=== PATIENT | male | born 1950 | race Caucasian/White ===

== ENCOUNTER 2019-04-28 10:32 | Outpatient (CLI) | payer MEDICARE, SELFPAY ==
--- NOTE | 2019-04-28 10:34 | ECG_ITS ---
Measurements Intervals Kinder Rate: 62 P: 34 VT: 207 QRS: -17 QRSD: 101 T: 8 QT: 401 QTc: 408 Interpretive Statements SINUS RHYTHM WITH FIRST DEGREE AV BLOCK POSSIBLE LEFT VENTRICULAR HYPERTROPHY EARLY PRECORDIAL R/S TRANSITION BORDERLINE T WAVE ABNORMALITY- INFERIOR LEADS BASELINE ARTIFACT- I, II, III, AVR, AVL, AVF, V5 ABNORMAL ECG Electronically Signed On 04-28-2019 11:26:34 METAL [employer] by Estuardo Valles D.O.
[2019-04-28 11:24] LABS: Hematocrit 45.2 % (42.0-52.0); Hemoglobin 14.8 g/dL (14.0-18.0); Mean Corpuscular HGB Conc 32.7 g/dl (32-36); Mean Corpuscular Hemoglobin 30.6 pg (26-34); Mean Corpuscular Volume 93.4 fl (80-100); Mean Platelet Volume 9.7 fl (7.4-10.4); Platelet Count Result 227 k/mm3 (150-375); Red Blood Count 4.84 M/mm3 (4.6-6.20); Red Cell Distribution Width 14.5 % (11.5-14.5); White Blood Count 6.8 K/mm3 (4.5-10.0)
[2019-04-28 11:35] LABS: Alanine Aminotransferase 38 U/L (4-50); Albumin Level 4.3 g/dL (3.5-5.1); Alkaline Phosphatase 64 U/L (38-126); Aspartate Amino Transferase 34 U/L (17-59); Bilirubin,Total 0.3 mg/dL (0.2-1.3); Blood Urea Nitrogen 17 mg/dL (9-20); Calcium 9.4 mg/dL (8.4-10.2); Carbon Dioxide 30 mmol/L (22-30); Chloride 102 mmol/L (98-107); Estimated Glomerular Filt Rate > 60; Glucose 98 mg/dL (75-110); Potassium 4.1 mmol/L (3.4-5.0); Sodium 141 mmol/L (137-145)
== END 2019-04-28 10:33 | disposition home or self-care (01) ==
PROVIDERS: PCP Internal Medicine; Visit Provider Surgery
DX: K40.90 Unilateral inguinal hernia, without obstruction or gangrene, not specified as recurrent (principal)
CPT/HCPCS: 36415; 80053; 85027; 86850; 86900; 86901; 93005

== ENCOUNTER 2019-05-10 01:37 | Day surgery (SDC) | payer MEDICARE, SELFPAY ==
[2019-04-21 13:00] VITALS: BMI 25.2
[2019-05-10] VITALS (8 sets, daily range): BP systolic 104–135; BP diastolic 64–83; PULSE 52–67; RESP 12–20; TEMP 36.2–36.7; O2SAT 94–98
[2019-05-10] MEDS: LACTATED RINGERS 1,000 ML 30 ML IV CONT ×2 (11:00→13:54)
--- NOTE | 2019-05-10 11:35 | WPDANESEPPF ---
Anes - Initial Pre Proc Eval Procedure: Operation Date: 05/10/19 12:00 Proposed Procedures p Total Extraperitoneal Laparoscopic Left Inguinal Hernia Repair With Mesh, Possible Open - Juan Rutledge MD Date/Time: 05/10/19 11:35 Surgeon: Juan Rutledge MD Pre Op Diagnosis: Left Inguinal Hernia Patient Data Age: 68 Gender: M Height: 5 ft 10 in Weight: 82.5 kg Last Vital Signs Temp 36.7 C 05/10/19 11:17 Pulse 58 L 05/10/19 11:17 Resp 20 05/10/19 11:17 BP 107/64 05/10/19 11:17 Pulse Ox 97 05/10/19 11:17 Allergies Allergy/AdvReac Type Severity Reaction Status Date / Time Sulfa (Sulfonamide Allergy Mild red and Verified 04/21/19 13:02 Antibiotics) flushed Home Medications Medication Instructions Recorded Confirmed Type mesalamine 800 mg tablet,delayed 1,600 mg PO DAILY 04/11/19 05/10/19 History release latanoprost 0.005 % eye drops 1 drop EACH EYE DAILY 04/12/19 05/10/19 History pantoprazole 40 mg tablet,delayed 40 mg PO HS 04/12/19 05/10/19 History release aspirin [Aspir-81] 81 mg PO DAILY 04/21/19 05/10/19 History brimonidine-timolol [Combigan] 1 drp OPHTHALMIC (EYE) BID 04/21/19 05/10/19 History multivitamin 1 tablet PO DAILY 04/21/19 05/10/19 History vit B1 [id number]-C-FA 1 tablet PO DAILY 04/21/19 05/10/19 History rosuvastatin [Crestor] 20 mg PO DAILY 05/10/19 05/10/19 History Patient hx anesthesia problems: post op nausea/vomiting Family hx anesthesia problems: none PMFSH Past Medical History Medical History BPH associated with nocturia (~03/2016) Diverticulosis large intestine w/o perforation or abscess w/o bleeding (~03/2013) GERD (gastroesophageal reflux disease) High cholesterol Surgical History Surgical History Hx of tonsillectomy Family History Family History Father Malignant neoplasm of prostate Mother Cerebrovascular accident Unknown Diabetes mellitus Other Family history of malignant neoplasm Social History Social History Smoking status: Never smoker Alcohol intake: current Substance use: never Gender identity (if verbalized by the patient): Male Anes - Eval Final PreProcedure Day of Procedure 05/10/19 11:35 Patient weight: overweight Heart: regular rate and rhythm Lungs: clear to auscultation Airway: Mallampati scale class II Neurological: alert and oriented Last oral intake: >/= 8 hours ASA classification: III Emergent: no Anesthetic plan: proceed Anesthesia type and monitoring: general ETT and standard monitoring Informed Consent: The patient's anesthetic plan and its attendant risks and benefits were discussed with the patient/family/POA. Questions were solicited and answers provided to the satisfaction of the patient/family/POA.
--- NOTE | 2019-05-10 11:55 | WPDHPUPDATE1 ---
History and Physical Update Update Date/Time: 05/10/19 11:55 History and Physical has been reviewed, including an updated exam of the patient. There are NO changes in the patient's condition. Risks, benefits, and alternatives have been discussed and questions answered. Patient agrees to proceed with procedure.
[2019-05-10] MEDS: ceFAZolin 2 GM/D5W 50 ML 2 GM/50 ML BAG IVPB (12:22)
[2019-05-10] MEDS: BUPIVACAINE/EPINEPHRINE 0.5% 30 ML VIAL INFILTRATE (12:38)
--- NOTE | 2019-05-10 13:59 | PM.PROC ---
Procedure Note - Detailed Date of procedure: 05/10/19 Pre-op diagnosis: Left Inguinal Hernia Post-op diagnosis: other ( indirect left inguinal hernia) Procedure performed: Totally extraperitoneal laparoscopic left inguinal hernia repair with mesh Description of procedure: After appropriate marking of the operative site prior to surgery, the patient was taken to the operating room. After induction of adequate general endotracheal anesthesia by [facility] staff, the patient was carefully prepped and draped in a sterile fashion. A timeout was performed confirming the procedure and site of surgery on the LEFT. Following this, local anesthetic was infiltrated into the umbilical area and a vertical incision was made just below the umbilicus. I carefully dissected down to the the anterior rectus sheath on the left and then made a 1 cm vertical slit in the fascia just off the midline. The rectus muscle was retracted to left and then just in front of the posterior rectus sheath, a circular dissecting balloon was passed onto the pubic bone. After placing slight pressure on the right groin area, this was insufflated with 20 pumps, while watching with the 0 degree laparoscope. It appeared that I was in the proper plane. Following this, the dissecting balloon was removed and replaced by an O-shaped conforming balloon. Following this, the 0 degree laparoscope was used to carefully place two 5mm short trocars, just to the right of midline. One suprapubic and other one jail between the umbilicus and the pubic bone. Tedious dissection then occurred in the preperitoneal space exposing the Cleveland's ligament, the cord structures, the muscular tissue anteriorly, and the retroperitoneum. This was then able to be dissected back and we could visualize the posterior peritoneum. This patient had a fairly good-sized indirect inguinal hernia densely adhered to the cord structures. This was thoroughly dissected off of it with blunt and sharp dissection. I was able to bring the hernia sac up and see the posterior peritoneum such that the will posterior part of our mesh would come against the peritoneum and allow the hernia sac to fall onto the mesh. I then dissected up to the level of the umbilicus and it was ready for mesh placement. After carefully confirming all sites and that the mesh would cover the direct space, I carefully rolled the left large 3D max polypropylene mesh and slid this through the 12 mm trocar at the umbilical level down into the preperitoneal space. This unfurled nicely and sat nicely against the left groin structures. It nicely covered all spaces and it went back nicely into the preperitoneal space along the anterior-superior iliac spine. I took a picture of it carefully, which showed that the mesh will cover the preperitoneal groin well, and had come down to the posterior border of the peritoneum. Once this was accomplished, I took the patient out of Trendelenburg position, rotated the patient back even, and then observed using a dissector through the higher 5 mm trocar to keep the mesh pushed down against the anterior and posterior abdominal wall retroperitoneally. The peritoneum was then allowed to fall on to the mesh and it held the mesh nicely in place. I carefully removed each of the 5 mm trocars under direct vision and compressed the CO2 gas out of the preperitoneal space, deflating the conforming balloon and removing it. I was happy with the way the peritoneum laid back on the mesh. I felt this will give the patient a good preperitoneal repair. Following this, I carefully removed the conforming balloon. An O Vicryl figure of eight suture was used to close the anterior rectus sheath on the left side of the umbilical incision and then local anesthetic was infiltrated into each of the incisions. Each site was closed with 4-0 undyed Monocryl and a running subcuticular closure of 4-0 undyed Monocryl was used on the skin of umbilicus. Surgical glue was used for dressi
[2019-05-10] MEDS: SCOPOLAMINE 1.5 MG PATCH TRANSDERM (14:27)
[2019-05-10] MEDS: ONDANSETRON INJ 4 MG/2 ML VIAL IV PUSH (15:11)
== END 2019-05-10 15:54 | disposition home or self-care (01) ==
PROVIDERS: PCP Internal Medicine; Visit Provider Surgery
PROC: (CPT 49650; principal; 2019-05-10 12:00)
DX: K40.90 Unilateral inguinal hernia, without obstruction or gangrene, not specified as recurrent (principal); E78.00 Pure hypercholesterolemia, unspecified; N40.1 Benign prostatic hyperplasia with lower urinary tract symptoms; R35.1 Nocturia; K21.9 Gastro-esophageal reflux disease without esophagitis; Z79.82 Long term (current) use of aspirin
CPT/HCPCS: 49650; A9270; C1781; J0131; J0690; J1100; J1170; J2250; J2370; J2405; J2704; J2710; J3010; J7120

== ENCOUNTER 2021-12-30 00:08 | Day surgery (SDC) | payer MEDICARE, SELFPAY ==
[2021-12-17 11:29] VITALS: BMI 25.1
[2021-12-30 08:08] VITALS: BP 102/71; PULSE 60; RESP 19; TEMP 36.2; O2SAT 99
[2021-12-30] MEDS: LACTATED RINGERS 1,000 ML 150 ML IV CONT (08:20)
--- NOTE | 2021-12-30 08:46 | WPDANESEPPF ---
Anes - Initial Pre Proc Eval Procedure: Operation Date: 12/30/21 09:00 Proposed Procedures p Esophagogastroduodenoscopy & Screening Colonoscopy - Roosevelt Tello MD Date/Time: 12/30/21 08:46 Surgeon: Roosevelt Tello MD Pre Op Diagnosis: GERD, family hx colon ca, hx colon polyps Patient Data Age: 71 Gender: M Height: 1.78 m Weight: 79 kg Last Vital Signs Temp 97.2 F L 12/30/21 08:08 Pulse 60 12/30/21 08:08 Resp 19 12/30/21 08:08 BP 102/71 12/30/21 08:08 Pulse Ox 99 12/30/21 08:08 O2 Del Method Room Air 12/30/21 08:08 Allergies Allergy/AdvReac Type Severity Reaction Status Date / Time Sulfa (Sulfonamide Allergy Mild red and Verified 12/30/21 08:06 Antibiotics) flushed Home Medications Medication Instructions Recorded Confirmed Type mesalamine 800 mg tablet,delayed 1,600 mg PO DAILY 04/11/19 12/17/21 History release latanoprost 0.005 % eye drops 1 drop ophthalmic (eye) DAILY 04/12/19 12/17/21 History aspirin 81 mg tablet,delayed 81 mg PO DAILY 04/21/19 12/17/21 History release (Aspir-) brimonidine 0.2 %-timolol 0.5 % 1 drp ophthalmic (eye) BID 04/21/19 12/17/21 History eye drops (Combigan) multivitamin 1 tablet PO DAILY 04/21/19 12/17/21 History [id number]-M-OD 1 tablet PO DAILY 04/21/19 12/17/21 History 18 mg-10 mg-45 mg-5 mg-250 mg tablet rosuvastatin 20 mg tablet (Crestor) 10 mg PO DAILY 05/10/19 12/17/21 History famotidine 10 mg tablet (Pepcid AC) 10 mg PO DAILY 10/30/21 12/17/21 History omega 5-oth-yqa-fish oil 1,200 mg 1 cap PO DAILY 10/30/21 12/17/21 History (144 mg-216 mg) capsule (Fish Oil) dorzolamide 2 % eye drops 1 drp EACH EYE TID 12/17/21 12/17/21 History magnesium 250 mg tablet 250 mg PO DAILY 12/17/21 12/17/21 History Patient hx anesthesia problems: none Family hx anesthesia problems: none Results Review: All pre-operative results and documents have been reviewed as part of the pre-operative evaluation. [facility] Past Medical History Medical History (Updated 10/31/21 @ 09:49 by Kristie Urbina) Adenomatous colon polyp BPH associated with nocturia (~03/2016) Diverticulosis large intestine w/o perforation or abscess w/o bleeding (~03/2013) Family history of colon cancer in father GERD (gastroesophageal reflux disease) High cholesterol History of colonic polyps Surgical History Surgical History Hx of tonsillectomy Family History Family History Father Malignant neoplasm of prostate Mother Cerebrovascular accident Unknown Diabetes mellitus Other Family history of malignant neoplasm Social History Social History Smoking status: Never smoker Alcohol intake: current Substance use: never Substance use type: does not use Living arrangements: other Additional living arrangements comments: with sp Gender identity (if verbalized by the patient): Male Anes - Eval Final PreProcedure Day of Procedure 12/30/21 08:46 Patient weight: normal Heart: regular rate and rhythm Lungs: clear to auscultation Airway: Mallampati scale class II Neurological: alert and oriented Last oral intake: >/= 8 hours ASA classification: II Emergent: no Anesthetic plan: proceed Anesthesia type and monitoring: general GIVS and standard monitoring Results Review: All pre-operative results and documents have been reviewed as part of the pre-operative evaluation. Informed Consent: The patient's anesthetic plan and its attendant risks and benefits were discussed with the patient/family/POA. Questions were solicited and answers provided to the satisfaction of the patient/family/POA.
--- NOTE | 2021-12-30 08:58 | PM.HPGS ---
History of Present Illness History of Present Illness Consent: Risks, benefits, and alternatives have been discussed and questions answered. Patient agrees to proceed with procedure. Chief complaint: GERD, family hx colon ca, hx colon polyps Narrative: Serafin Patterson is a 71 year old male due to have another colonoscopy (last one 5 years ago), father had colon cancer. Remote history of PUD but now only using pepcid as needed. Review of Systems Constitutional: Constitutional: Denies headache(s) and Denies weakness Eyes: Eyes: Denies blurry vision ENT: Reports Normal hearing present, Denies headache(s) and Denies neck pain Cardiovascular: Cardiovascular: Denies chest pain and Denies dyspnea Respiratory: Respiratory: Denies dyspnea Gastrointestinal: Gastrointestinal: Reports no additional gastrointestinal complaints Genitourinary: Genitourinary: Denies dysuria Musculoskeletal: Musculoskeletal: Denies neck pain Integumentary/Breasts: Skin/Breast: Denies dry skin Neurologic: Reports Normal hearing present, Denies headache(s) and Denies weakness Psychiatric: Psychiatric: Denies anxiety Endocrine: Endocrine: Denies change in body appearance Hematologic/Lymphatic: Hematologic/Lymphatic: Denies easy bleeding Allergic/Immunologic: Allergic/Immunologic: Denies urticaria [facility] Past Medical History Medical History (Updated 10/31/21 @ 09:49 by Kristie Urbina) Adenomatous colon polyp BPH associated with nocturia (~03/2016) Diverticulosis large intestine w/o perforation or abscess w/o bleeding (~03/2013) Family history of colon cancer in father GERD (gastroesophageal reflux disease) High cholesterol History of colonic polyps Surgical History Surgical History Hx of tonsillectomy Family History Family History Father Malignant neoplasm of prostate Mother Cerebrovascular accident Unknown Diabetes mellitus Other Family history of malignant neoplasm Social History Social History Smoking status: Never smoker Alcohol intake: current Substance use: never Substance use type: does not use Living arrangements: other Additional living arrangements comments: with sp Gender identity (if verbalized by the patient): Male Meds Home Medications and Allergies Home Medications Medication Instructions Recorded Confirmed Type mesalamine 800 mg tablet,delayed 1,600 mg PO DAILY 04/11/19 12/17/21 History release latanoprost 0.005 % eye drops 1 drop ophthalmic (eye) DAILY 04/12/19 12/17/21 History aspirin 81 mg tablet,delayed 81 mg PO DAILY 04/21/19 12/17/21 History release (Aspir-) brimonidine 0.2 %-timolol 0.5 % 1 drp ophthalmic (eye) BID 04/21/19 12/17/21 History eye drops (Combigan) multivitamin 1 tablet PO DAILY 04/21/19 12/17/21 History [id number]-CV 1 tablet PO DAILY 04/21/19 12/17/21 History 18 mg-10 mg-45 mg-5 mg-250 mg tablet rosuvastatin 20 mg tablet (Crestor) 10 mg PO DAILY 05/10/19 12/17/21 History famotidine 10 mg tablet (Pepcid AC) 10 mg PO DAILY 10/30/21 12/17/21 History omega 7-eqk-frg-fish oil 1,200 mg 1 cap PO DAILY 10/30/21 12/17/21 History (144 mg-216 mg) capsule (Fish Oil) dorzolamide 2 % eye drops 1 drp EACH EYE TID 12/17/21 12/17/21 History magnesium 250 mg tablet 250 mg PO DAILY 12/17/21 12/17/21 History Allergies Allergy/AdvReac Type Severity Reaction Status Date / Time Sulfa (Sulfonamide Allergy Mild red and Verified 12/30/21 08:06 Antibiotics) flushed Vital Signs Vital Signs - 24 hr 12/30/21 08:08 Temperature 97.2 F L Pulse Rate 60 Respiratory Rate 19 Blood Pressure 102/71 Pulse Oximetry 99 Oxygen Delivery Room Air Exam Const: General: comfortable and no acute distress HENMT: Face/Nose/Sinus: Normal nares present
--- NOTE | 2021-12-30 09:11 | SUR.OPER ---
EGD end 906 COLONOSCOPY START 910
[2021-12-30 09:22] VITALS: BP 91/62; PULSE 59; RESP 16; O2SAT 92
[2021-12-30 09:32] VITALS: BP 88/61; PULSE 60; RESP 19; O2SAT 96
[2021-12-30 09:42] VITALS: BP 93/61; PULSE 60; RESP 18; O2SAT 96
== END 2021-12-30 09:52 | disposition home or self-care (01) ==
PROVIDERS: PCP Family Medicine; Visit Provider Internal Medicine Gastroenterology
PROC: 0DJ08ZZ Inspection of Upper Intestinal Tract, Via Natural or Artificial Opening Endoscopic (ICD-10-PCS; CPT 43235; principal; 2021-12-30 09:00)
DX: Z12.11 Encounter for screening for malignant neoplasm of colon (principal); K21.9 Gastro-esophageal reflux disease without esophagitis; K29.50 Unspecified chronic gastritis without bleeding; K64.8 Other hemorrhoids; K62.89 Other specified diseases of anus and rectum; K57.30 Diverticulosis of large intestine without perforation or abscess without bleeding; Z86.010 Personal history of colon polyps; Z79.82 Long term (current) use of aspirin; N40.1 Benign prostatic hyperplasia with lower urinary tract symptoms; E78.00 Pure hypercholesterolemia, unspecified
CPT/HCPCS: 43239; G0105; 88305; J7120

== ENCOUNTER 2022-12-04 11:22 | Outpatient (CLI) | payer MEDICARE, SELFPAY ==
--- NOTE | ~2022-12-04 | US_ITS ---
EXAMINATION: US FNA w image guidance DATE: 12/04/2022 12:57 INDICATION: Right thyroid nodule. TECHNIQUE: The procedure and its benefits and risks were discussed with the patient. Risks specifically discusse d included bleeding. The patient verbalized understanding of the risks and agreed to proceed. The nec k was prepped and draped in the usual sterile manner. 1% lidocaine was used for local anesthesia. 7 passes were made with a 25G needle into the lesion under ultrasound guidance. There were no immedia te complications. FINDINGS: Grayscale ultrasound images demonstrate needles advanced into a 2.3 cm right thyroid nodule for biops y. IMPRESSION: 1. Ultrasound-guided fine needle aspiration of a right thyroid nodule. Reviewed, dictated and finalized at location A.
--- NOTE | ~2022-12-04 | US_ITS ---
EXAMINATION: US thyroid DATE: 12/04/2022 12:05 INDICATION: Right thyroid nodule. TECHNIQUE: Multiple ultrasound images of the thyroid were obtained. COMPARISON: None. FINDINGS: The right thyroid lobe measures 4.0 x 2.1 x 1.7 cm. The left thyroid lobe measures 3.9 x 1.6 x 2.0 c m. In the right thyroid lobe, there is a 2.3 cm solid, hypoechoic, wider than tall nodule with ill-d efined margin without echogenic foci (TI-RADS TR4). In the left thyroid lobe , there is a 6 mm mixed cystic and solid, hypoechoic, wider than tall nodule with smooth margin without echogenic foci (TR3). IMPRESSION: 1. Thyroid nodule. Ultrasound-guided fine-needle aspiration of the 2.3 cm right thyroid nodule is rec ommended. Reviewed, dictated and finalized at location A. IMPRESSION: 1. Thyroid nodule. Ultrasound-guided fine-needle aspiration of the 2.3 cm right thyroid nodule is recommended.
== END 2022-12-04 11:23 | disposition home or self-care (01) ==
PROVIDERS: PCP Nurse Practitioner Family; Visit Provider Internal Medicine Endocrinology, Diabetes & Metabolism
DX: E04.1 Nontoxic single thyroid nodule (principal)
CPT/HCPCS: 10005; 76536; 88173; 88305

== ENCOUNTER 2023-04-01 11:07 | Outpatient (CLI) | payer MEDICARE, SELFPAY ==
--- NOTE | 2023-04-01 11:08 | ECG_ITS ---
Measurements Intervals Ona Rate: 63 P: 47 KS: 208 QRS: -18 QRSD: 105 T: -5 QT: 400 QTc: 411 Interpretive Statements SINUS RHYTHM WITH FIRST DEGREE AV BLOCK VOLTAGE CRITERIA FOR LVH BORDERLINE T WAVE ABNORMALITY- INFERIOR LEADS BASELINE ARTIFACT- I, III, AVR, AVL, AVF, V4-V6 BORDERLINE ECG COMPARED TO ECG 04/28/2019 11:31:42 NO SIGNIFICANT CHANGES Electronically Signed On 04-01-2023 11:46:19 [employer]ATING [employer] by Estuardo Valles D.O.
== END 2023-04-01 11:08 | disposition home or self-care (01) ==
LOC: ANHSURGERY 11:08
PROVIDERS: PCP Nurse Practitioner Family; Visit Provider Orthopaedic Surgery
DX: E78.5 Hyperlipidemia, unspecified (principal); Z01.818 Encounter for other preprocedural examination; I44.0 Atrioventricular block, first degree
CPT/HCPCS: 93005

== ENCOUNTER 2023-04-09 00:46 | Day surgery (SDC) | payer MEDICARE, SELFPAY ==
--- NOTE | 2023-03-31 10:38 | PC.NURSE ---
Report to the Outpatient Waiting Room, entrance under the green pavilion located off [facility], at time _0600 on date 04/09/23 . Planned Procedure Time: __0730 . Time changes happen often and if your time is changed the preop area will call you the afternoon before. - You and your visitor will be asked to self-screen and do not enter if you have any COVID symptoms. - A mask is optional within the hospital at this time. Patients may have clear liquids (water, carbonated beverages, clear teas, apple juice) until 3 hours prior to surgery( 4:30AM) with a maximum of 20 ounces. - No food from midnight until time of surgery - Infants may have breast milk until 4 hours before surgery, infant formula 6 hours prior to surgery. - Children will be allowed to drink immediately following surgery. If applicable, please bring a bottle or sippy cup to assist with drinking. Juice, water, soda, and popsicles are readily available. For infants on formula, please bring formula the day of surgery. Pacifiers are allowed. Take the following medications with a SIP of water the morning of surgery: ___EYE DROPS DO NOT STOP ANY OF YOUR OTHER PRESCRIPTION MEDICATIONS PRIOR TO SURGERY ?EXCEPT THE FOLLOWING Medications to discontinue per physician ___PT TO ASK DR ANGLIN WHEN TO HOLD ASPIRIN, HOLD ALL VITAMINS AND SUPPLEMENTS 3 DAYS PRE OP .LAST DOSE 04/06/23 Please no make-up, nail trinidadian, hairspray, perfume, deodorant, or body powder the day of surgery. No jewelry (including any body piercings) or valuables the day of surgery, leave them at home. Please take a shower or bath the night before, or the morning of, surgery with an antibacterial soap. Wear comfortable, loose fitting clothing. Children are encouraged to wear pajamas. - Jewelry must be removed prior to entering the operating room. Rings and piercings that are not removed may be cut off. - The hospital will not accept responsibility for valuables. - Please leave all valuables, including medications, at home the day of surgery. If you are going home after surgery, a licensed over the road driver must drive you home. - NO public transportation without another adult if you receive anesthesia. - We recommend that an adult stay with you for 24 hours following discharge. - We also recommend that you do not drive, make important decision, drink alcoholic beverages, or take any drugs that were not prescribed by your health care provider for at least 24 hours after your discharge time. For Pediatric surgeries, we recommend two adults accompany the child home. Follow any additional instructions given to you from your surgeon. If you or anyone in your household have experienced Covid symptoms in the past week, please notify your surgeon or the nurse liaison at the phone number below for possible testing. Telephone instructions given to __SPOUSE KIM and asked if any additional questions and then verbalized understanding. Patient advised to call surgeon office or pre surgery nurse liaison [phone] if any additional questions.
[2023-03-31 10:49] VITALS: BMI 25.8
--- NOTE | 2023-04-08 14:10 | WPDANESEPPF ---
Anes - Initial Pre Proc Eval Procedure: Operation Date: 04/09/23 07:30 Proposed Procedures p Right Rotator Cuff Repair - Bhargav Zavala MD Date/Time: 04/08/23 14:10 Surgeon: Bhargav Zavala MD Pre Op Diagnosis: right rotator cuff tear Patient Data Age: 72 Gender: M Height: 1.75 m Weight: 79.4 kg Allergies Allergy/AdvReac Type Severity Reaction Status Date / Time Sulfa (Sulfonamide Allergy Mild red and Verified 04/09/23 06:36 Antibiotics) flushed Home Medications Medication Instructions Recorded Confirmed Type latanoprost 0.005 % eye drops 1 drop ophthalmic (eye) HS 04/12/19 04/09/23 History aspirin 81 mg tablet,delayed 81 mg PO DAILY 04/21/19 04/09/23 History release (Aspir-) brimonidine 0.2 %-timolol 0.5 % 1 drp ophthalmic (eye) BID 04/21/19 04/09/23 History eye drops (Combigan) multivitamin 1 tablet PO DAILY 04/21/19 04/09/23 History omega 0-vtb-hxr-fish oil 1,200 mg 1 cap PO DAILY 10/30/21 04/09/23 History (144 mg-216 mg) capsule (Fish Oil) dorzolamide 2 % eye drops 1 drp EACH EYE TID 12/17/21 04/09/23 History magnesium 250 mg tablet 250 mg PO DAILY 12/17/21 04/09/23 History potassium chloride 20 mEq 99 meq PO DAILY 03/13/22 04/09/23 History tablet,extended release famotidine 10 mg tablet (Pepcid AC) 10 mg PO DAILY 06/19/22 04/09/23 History pantoprazole 40 mg tablet,delayed 40 mg PO QAM #90 tabs 12/30/22 04/09/23 Rx release rosuvastatin 10 mg tablet (Crestor) 10 mg PO DAILY #90 tabs 12/30/22 04/09/23 Rx clindamycin phosphate 1 % topical 1 applic topical DAILY #30 grams 03/23/23 04/09/23 Rx gel acetaminophen 650 mg 650 mg PO Q12H PRN Pain 03/31/23 04/09/23 History tablet,extended release (Tylenol 8 Hour) cholecalciferol (vitamin D3) 25 25 mcg PO DAILY 03/31/23 04/09/23 History mcg (1,000 unit) tablet glucosamine-chondroitin 250 mg-200 2 tablet PO DAILY 03/31/23 04/09/23 History mg tablet (Osteo Bi-Flex) mesalamine 800 mg tablet,delayed 800 mg PO DAILY 03/31/23 04/09/23 History release vitamin B complex 1 cap PO DAILY 03/31/23 04/09/23 History ondansetron HCl 4 mg tablet 4 mg PO Q6H PRN nausea and 04/09/23 Rx vomiting #30 tabs oxycodone-acetaminophen 5 mg-325 1 tablet PO Q6H PRN pain #40 tabs 04/09/23 Rx mg tablet (Percocet) Patient hx anesthesia problems: none Family hx anesthesia problems: none Results Review: All pre-operative results and documents have been reviewed as part of the pre-operative evaluation. [facility] Past Medical History Medical History (Updated 04/08/23 @ 14:11 by Arias Gray DO) Adenomatous colon polyp Aortic aneurysm Diverticulosis large intestine w/o perforation or abscess w/o bleeding (~03/2013) Family history of colon cancer in father GERD (gastroesophageal reflux disease) Glaucoma High cholesterol History of colonic polyps Thyroid Nodule Surgical History Surgical History History of hernia repair Hx of tonsillectomy Family History Family History Father Malignant neoplasm of prostate Carcinoma of colon Colon polyp Heart disease Mother Cerebrovascular accident Unknown No problems noted. Social History Social History Smoking status: Never smoker Alcohol intake: current Alcohol use details: occasionally Substance use: never Substance use type: does not use Lack of Transportation: No Lack of Food: Never True Current Housing: I Have Housing Concerned About Future Housing: No Difficulty Paying Gas/Electric Bills: No Difficulty Paying for Meds: No Currently Unemployed: No Education: Master's Degree or Higher Difficulty w/ Childcare or Family Care: No Living arrangements: with family Additional living arrangements comments: with sp Occupation/Education: retired Gender i
[2023-04-09] VITALS (15 sets, daily range): BP systolic 111–145; BP diastolic 69–87; PULSE 53–67; RESP 12–19; TEMP 36.1; O2SAT 92–100
[2023-04-09] MEDS: ACETAMINOPHEN 500 MG TABLET 1000 MG PO (06:43)
[2023-04-09] MEDS: CELECOXIB 200 MG CAPSULE PO (06:43)
[2023-04-09] MEDS: LACTATED RINGERS 1,000 ML 30 ML IV CONT ×3 (07:00→13:13)
--- NOTE | 2023-04-09 07:06 | WPDHPUPDATE1 ---
History and Physical Update Update Date/Time: 04/09/23 07:06 History and Physical has been reviewed, including an updated exam of the patient. There are NO changes in the patient's condition. Risks, benefits, and alternatives have been discussed and questions answered. Patient agrees to proceed with procedure.
[2023-04-09] MEDS: ceFAZolin 2 GM/D5W 50 ML 2 GM/50 ML BAG IVPB (07:45)
--- NOTE | 2023-04-09 07:58 | WPDANESPNB ---
Anes - Peripheral Nerve Block Date/Time: 04/09/23 07:58 I have discussed with the patient/family/POA the placement of a peripheral nerve block for post-operative pain management, including associated risks, benefits, complications, and side effects. Alternative methods of post-operative analgesia were detailed. Questions were solicited and answers provided to the satisfaction of the patient/family/POA. Time-Out: A pre-procedural Time-Out was completed immediately before starting the procedure and confirmed: Patient Identification, Site, Procedure, Patient Position and the Availability of Requisite Equipment. Clinical Indications: Acute post-operative pain management requested by the operative surgeon. Nerve Block Insertion Note Anes-nerve block: interscalene right Patient position: supine Skin prep: chlorhexidine Needle: 22 gauge, stimulating, insulated echogenic needle. Needle length: 50 mm Technique: ultrasound Injectate: bupivacaine 0.5% with epi 5 mcg/ml (30cc- no epi) Observations: tolerated well Complications: none Procedure start time:: 713 Procedure end time:: 717
--- NOTE | 2023-04-09 09:27 | W.PM.PROC2 ---
Procedure Note - Detailed Date of Procedure 04/09/23 Pre-op Diagnosis right rotator cuff tear Post-op Diagnosis Same Procedure Performed REPAIR RIGHT ROTATOR CUFF Surgeon Bhargav Zavala MD Anesthesia General Description of Procedure THE PATIENT WAS TAKEN TO THE OPERATING ROOM AND THEN INTUBATED AND PLACED IN THE BEACH CHAIR POSITION. THE RIGHT UPPER EXTREMITY WAS PREPPED AND DRAPED IN THE NORMAL STERILE FASHION. AN INCISION WAS MADE IN BETWEEN THE LJ-LATERAL ACROMION AND THE AC JOINT. THE FASCIA WAS IDENTIFIED. NEXT A MINI OPEN INCISION WAS MADE THROUGH THE DELTOID MUSCLE EXPOSING THE SUBACROMIAL SPACE. A LIMITED ACROMIOPLASTY WAS PREFORMED. THE ROTATOR CUFF WAS IDENTIFIED. THERE WAS A FULL THICKNESS TEAR. IT MEASURED APPROXIMATELY 2 CM X 1 CM. THE GREATER TUBEROSITY WAS DEBRIDED TO BLEEDING BONE. 2 ARTHREX 5.5 SUTURE ANCHORS WERE PLACED IN TO GOOD BONE AND HAD VERY GOOD BITES. BEN[place] TYPE REPAIRS WERE DONE TO THE ROTATOR CUFF AND THERE WAS GOOD APPROXIMATION TO THE GREATER TUBEROSITY. THE REPAIR WAS EXCELLENT. THERE WAS NO IMPINGEMENT ON THE REPAIR FROM THE ACROMION WITH RANGE OF MOTION. THE WOUND WAS IRRIGATED WITH COPIOUS AMOUNTS OF ANTIBIOTIC SOLUTION. THE DELTOID MUSCLE WAS REPAIRED WITH #2 FIBER WIRE AND 0 VICRYL SUTURE. THE SUBCUTANEOUS LAYER WAS APPROXIMATED WITH 2-0 VICRYL. THE SKIN WAS APPROXIMATED WITH 3-0 QUIL AND DERMABOND. STERILE DRESSING WAS APPLIED. PATIENT WAS EXTUBATED. Estimated Blood Loss 20 Complications No immediate complications Condition Stable Disposition PACU
[2023-04-09] MEDS: ONDANSETRON INJ 4 MG/2 ML VIAL IV PUSH (10:15)
[2023-04-09] MEDS: diphenhydrAMINE HCl INJ 50 MG/ML VIAL 12.5 MG IV PUSH ×2 (11:52→12:09)
[2023-04-09] MEDS: PROMETHAZINE HCL 25 MG/ML AMPUL 12.5 MG IV PUSH (13:13)
== END 2023-04-09 14:10 | disposition home or self-care (01) ==
PROVIDERS: PCP Nurse Practitioner Family; Visit Provider Orthopaedic Surgery
PROC: (CPT 23420; principal; 2023-04-09 07:30)
DX: S46.011A Strain of muscle(s) and tendon(s) of the rotator cuff of right shoulder, initial encounter (principal); X50.0XXA Overexertion from strenuous movement or load, initial encounter; G89.18 Other acute postprocedural pain; E78.00 Pure hypercholesterolemia, unspecified; H40.9 Unspecified glaucoma; K21.9 Gastro-esophageal reflux disease without esophagitis; Z79.82 Long term (current) use of aspirin
CPT/HCPCS: 23410; 64415; 93005; A9270; J0690; J1100; J1200; J1596; J2250; J2371; J2405; J2550; J2704; J2710; J3010; J7120

== ENCOUNTER 2023-07-15 13:56 | Outpatient (CLI) | payer MEDICARE, SELFPAY ==
--- NOTE | ~2023-07-15 | XR_ITS ---
XR abdomen/kub 1V 07/15/2023 14:08 Indication: Kidney stone Procedure: KUB Comparison: No prior studies for comparison. Findings: There is an 8 mm left renal stone. There is an 8 mm stone overlying the expected course of the left ureter at the L4 level. Bowel gas pattern nonobstructive. Moderate colonic fecal loading. No acute osseous abnormality. There are coarse prostate calcifications. There are pelvic phleboliths. Impression: 1: Probable 8 mm left ureteral stone at the L4 level. 2: Left nephrolithiasis. Reviewed, dictated and finalized at location B. Impression: 1: Probable 8 mm left ureteral stone at the L4 level. 2: Left nephrolithiasis.
== END 2023-07-15 13:57 | disposition home or self-care (01) ==
LOC: ANHIMG 13:58
PROVIDERS: PCP Nurse Practitioner Family; Visit Provider Urology
DX: N20.0 Calculus of kidney (principal); N20.1 Calculus of ureter
CPT/HCPCS: 74018

== ENCOUNTER 2023-07-21 15:00 | Outpatient (RCR) | payer MEDICARE, SELFPAY ==
--- NOTE | 2023-04-28 16:26 | PTOPEVAL1 ---
Assessment and note entered by Deb Jameson, PT Evaluation Information Assessment Status Evaluation Diagnosis right rotator cuff repair Pain in right shoulder weakness abnormal posture Onset 04/09/23 Subjective Information Pt reports had a sling for a week but then stopped wearing it. Reports ortho MD stated he didn't have to wear sling last week Pt states he has been trying to use his arm and do some things but has difficulty with reaching over chest height. Patient reports moving a certain range will have pain. Most difficulty with sleeping. Has tried recliner and couch but can only do this a couple hours. Pt reports has tried sleeping with the sling but this didn't work. Reported Pain Level Pain Score 0: Self Report Additional Pain Score Comments Has not used prescription, Tylenol keeps pain under control. Assessment PT Clinical Summary Pt presents 2.5 weeks post operative right shoulder rotator cuff repair. He has not used his sling since week 1 but states MD told him he didn' t have to wear it anymore. Pt reports pain ranging from 0-6/10 with tylenol controlling his pain. He reports he has been trying to do things with his right shoulder and use it some but hasn't lifted anything with it. Pt was educated on post- operative restrictions and educated not to use RUE accept bending from the elbow, no lifting. Pt passive ROM tested with soft tissue end-feels, no guarding, immediate improvements in range with passive stretching. Difficulty with scapular adduction in supine, tight pec muscles noted as well. Pt will greatly benefit from therapy to assist in post-operative healing progressing range , posture, and strength will decreasing pain in order to allow highest level of rehabilitation and return pt to [facility]. Plan of Care Interventions Electrical Stimulation,Hot Pack/Cold Pack,Manual Therapy,Neuro Re-education,Patient/Caregiver Educati,Therapeutic Activities,Therapeutic Exercise,Self-Care/Home Management PT Services Indicated Yes Treatment Frequency and 2x weekly x 3 weeks Duration These treatments will address the objective and functional deficits as defined above. The patient will be advanced safely and appropriately in order for the patient to progress towards his/her prior level of function. Additional exercises will be introduced and as
--- NOTE | 2023-04-28 16:26 | OPREHPOC ---
Outpatient Therapy Plan of Care This is a Multidisciplinary Plan of Care that may contain components documented by all disciplines (PT, OT, and ST.) PT Problem 1 PT Problem #1 Knowledge Deficit PT Goal 1 Goal Pt will be independent in HEP Pt will verbalize understanding of diagnosis and prognosis Target Visit 12 PT Problem 2 PT Problem #2 Pain PT Goal 1 Goal Pt will report greatest pain level at 3/10 or less to improve ADLs and activities Target Visit 12 PT Goal 2 Goal Pt will report resolution of pain to return to PLOF Target Visit 24 PT Problem 3 PT Problem #3 Impaired Range of Motion PT Goal 1 Goal Pt will demo passive ROM RUE flexion of 150 to allow motion for active ROM progression Pt will demo passive ROM RUE abduction of 150 to allow motion for active ROM progression Target Visit 12 PT Goal 2 Goal Pt will demo flexion and abduction active ROM equal to LUE to demo return to PLOF Target Visit 24
--- NOTE | 2023-05-17 17:21 | PCPTNOTE ---
Patient called & cancelled scheduled appointment this date due to family emergency
[2023-05-26 14:51] VITALS: BP_SYST 116
--- NOTE | 2023-05-26 16:26 | PTOPPROG ---
Assessment and note entered by Deb Jameson, PT Assessment Status Progress Diagnosis right rotator cuff repair Therapy conditions pain in right shoulder abnormal posture weakness Onset 04/09/23 Subjective Information Pt reports had a sling for a week but then stopped wearing it. Reports ortho MD stated he didn't have to wear sling last week Pt states he has been trying to use his arm and do some things but has difficulty with reaching over chest height. Patient reports moving a certain range will have pain. Most difficulty with sleeping. Has tried recliner and couch but can only do this a couple hours. Pt reports has tried sleeping with the sling but this didn't work. Assessment PT Clinical Summary Pt has attended therapy consistently post RTC repair. He is in week 7 and has started active assistive, and active ROM activities in multiple positions. His reports of pain continue to be low however he has a clicking occasionally in right shoulder with active ROM after a fall a few weeks ago. He reports he informed the Ortho MD of this who reviewed imaging and stated to continue therapy. Pt is progressing well within protocol however has yet to meet all goals and return to PLOF. Thus therapy is necessary to continue at this time. Plan of Care Interventions Electrical Stimulation,Hot Pack/Cold Pack,Manual Therapy,Neuro Re-education,Patient/Caregiver Educati,Therapeutic Activities,Therapeutic Exercise,Self-Care/Home Management PT Services Indicated Yes Treatment Frequency and 1-2x weekly x 12 visits Duration These treatments will address the objective and functional deficits as defined above. The patient will be advanced safely and appropriately in order for the patient to progress towards his/her prior level of function. Additional exercises will be introduced and as well as a comprehensive home exercise program upon discharge, if needed, ?to ensure carryover of functional gains achieved in the clinic. This treatment plan has been reviewed and agreement upon by the patient.
[2023-06-23 14:53] VITALS: BP_SYST 135
--- NOTE | 2023-06-23 16:02 | PTOPPROG ---
Assessment and note entered by Deb Jameson, PT Assessment Status Progress Diagnosis right rotator cuff repair Therapy Condition pain in right shoulder weakness abnormal posture Onset 04/09/23 Subjective Information Pt reports will be 11 weeks post-op end of this week. Is bothersome sleeping on his right side, states tried to sleep on left side and was also uncomfortable. Currently sleeping on back is most comfortable for shoulder. Notes sometimes will wake up in the middle of the night and will be achy but usually goes away. Feels like is worse with stretching versus with weight Self perceived improvement: 50-60% improved Assessment PT Clinical Summary Pt has attended 16 visits s/p right rotator cuff repair 10.5 weeks ago. Highest level of discomfort is rated at a 2/10 with patient remaining at a 0/ 10 most days. Pt has been strengthening with therapy and while is improved, has yet to show strength equal to the unaffected extremity. Also cont to demo difficulty with scapular stability, positioning, and isolation of glenohumeral joint. Pt will benefit from physical therapy to continue improving strength, postural control, and function . Plan of Care Interventions Electrical Stimulation,Hot Pack/Cold Pack,Manual Therapy,Neuro Re-education,Patient/Caregiver Educati,Therapeutic Activities,Therapeutic Exercise,Self-Care/Home Management PT Services Indicated Yes Treatment Frequency and 1-2x weekly for 12 visits Duration These treatments will address the objective and functional deficits as defined above. The patient will be advanced safely and appropriately in order for the patient to progress towards his/her prior level of function. Additional exercises will be introduced and as well as a comprehensive home exercise program upon discharge, if needed, ?to ensure carryover of functional gains achieved in the clinic. This treatment plan has been reviewed and agreement upon by the patient.
--- NOTE | 2023-07-28 11:36 | PCPTNOTE ---
This treatment is being continued on visit number [id number]. Please see documentation on both accounts to view progress. Completed interventions, outcomes, and problems have been marked as Inactive to facilitate the copying of the Care plan routine for recurring accounts.
== END 2023-07-27 23:59 | disposition home or self-care (01) ==
LOC: ANHHIPT 15:00
PROVIDERS: PCP Nurse Practitioner Family; Visit Provider Orthopaedic Surgery
DX: M25.511 Pain in right shoulder (principal); R53.1 Weakness; Z47.89 Encounter for other orthopedic aftercare; Z98.890 Other specified postprocedural states
CPT/HCPCS: 97014; 97110; 97112; 97140; 97162; 97530; 97750; G0283

== ENCOUNTER 2023-07-26 13:29 | Outpatient (CLI) | payer MEDICARE, SELFPAY ==
[2023-07-26 14:23] LABS: INR 0.9; Partial Thromboplastin Time 27.2 Seconds (22.3-36.8); Prothrombin Time 12.5 Seconds (11.1-14.7)
== END 2023-07-26 13:30 | disposition home or self-care (01) ==
PROVIDERS: PCP Nurse Practitioner Family; Visit Provider Urology
DX: N20.1 Calculus of ureter (principal); Z01.818 Encounter for other preprocedural examination
CPT/HCPCS: 36415; 85610; 85730; 87086

== ENCOUNTER 2023-07-29 00:35 | Day surgery (SDC) | payer MEDICARE, SELFPAY ==
--- NOTE | 2023-07-23 12:29 | PC.NURSE ---
Report to the Outpatient Waiting Room, entrance under the green pavilion located off [facility], at time __1100 on date __07/29/23 . Planned Procedure Time: ___1:00 PM . Time changes happen often and if your time is changed the preop area will call you the afternoon before. - You and your visitor will be asked to self-screen and do not enter if you have any COVID symptoms. - A mask is optional within the hospital at this time. Patients may have clear liquids (water, carbonated beverages, clear teas, apple juice) until 3 hours prior to surgery( 10:00 AM ) with a maximum of 20 ounces. - No food from midnight until time of surgery - Infants may have breast milk until 4 hours before surgery, infant formula 6 hours prior to surgery. - Children will be allowed to drink immediately following surgery. If applicable, please bring a bottle or sippy cup to assist with drinking. Juice, water, soda, and popsicles are readily available. For infants on formula, please bring formula the day of surgery. Pacifiers are allowed. Take the following medications with a SIP of water the morning of surgery: ____EYE DROPS, DO NOT STOP ANY OF YOUR OTHER PRESCRIPTION MEDICATIONS PRIOR TO SURGERY ?EXCEPT THE FOLLOWING Medications to discontinue per physician __PT STATES LAST DOSE ASPIRIN WAS MAR 2023, HOLD ALL VITAMINS,SUPPLEMENTS, PROBIOTIC 3 DAYS PRE OP .LAST DOSE 07/25/23 Please no make-up, nail faroese, hairspray, perfume, deodorant, or body powder the day of surgery. No jewelry (including any body piercings) or valuables the day of surgery, leave them at home. Please take a shower or bath the night before, or the morning of, surgery with an antibacterial soap. Wear comfortable, loose fitting clothing. Children are encouraged to wear pajamas. - Jewelry must be removed prior to entering the operating room. Rings and piercings that are not removed may be cut off. - The hospital will not accept responsibility for valuables. - Please leave all valuables, including medications, at home the day of surgery. If you are going home after surgery, a licensed driver license agent must drive you home. - NO public transportation without another adult if you receive anesthesia. - We recommend that an adult stay with you for 24 hours following discharge. - We also recommend that you do not drive, make important decision, drink alcoholic beverages, or take any drugs that were not prescribed by your health care provider for at least 24 hours after your discharge time. Follow any additional instructions given to you from your surgeon. If you or anyone in your household have experienced Covid symptoms in the past week, please notify your surgeon or the nurse liaison at the phone number below for possible testing. Telephone instructions given to __PATIENT AND KIM and asked if any additional questions and then verbalized understanding. Patient advised to call surgeon office or pre surgery nurse liaison [phone] if any additional questions.
[2023-07-23 12:41] VITALS: BMI 25.0
--- NOTE | 2023-07-28 11:40 | PCPTNOTE ---
This treatment is being continued on visit number [id number]. Please see documentation on both accounts to view progress. Completed interventions, outcomes, and problems have been marked as Inactive to facilitate the copying of the Care plan routine for recurring accounts.
[2023-07-29] VITALS (7 sets, daily range): BP systolic 117–144; BP diastolic 78–85; PULSE 55–64; RESP 12–20; TEMP 36.1–36.5; O2SAT 97–100
--- NOTE | ~2023-07-29 | XR_ITS ---
EXAMINATION: XR abdomen/kub 1V DATE: 07/29/2023 11:35 INDICATION: Kidney stone. Preop. TECHNIQUE: A supine view of the abdomen on 2 radiographs was obtained. COMPARISON: Abdomen radiographs 07/15/2023 FINDINGS: There are no dilated loops of bowel. There is a 5 x 9 mm stone in proximal left ureter. Master cifications in the pelvis are likely phleboliths. Prostate calcifications are noted. IMPRESSION: 1. 5 x 9 mm stone in proximal left ureter. Reviewed, dictated and finalized at location A.
--- NOTE | 2023-07-29 06:18 | WPDHPUPDATE1 ---
History and Physical Update Update Date/Time: 07/29/23 06:18 History and Physical has been reviewed, including an updated exam of the patient. There are NO changes in the patient's condition. Risks, benefits, and alternatives have been discussed and questions answered. Patient agrees to proceed with procedure.
--- NOTE | 2023-07-29 11:50 | WPDANESEPPF ---
Anes - Initial Pre Proc Eval Procedure: Operation Date: 07/29/23 14:00 Proposed Procedures p Left Ureteral Extracorporeal Shock Wave Lithotripsy - Joseph Lees MD Date/Time: 07/29/23 11:50 Surgeon: Joseph Lees MD Pre Op Diagnosis: left ureteral stone Patient Data Age: 72 Gender: M Height: 1.75 m Weight: 76.7 kg Allergies Allergy/AdvReac Type Severity Reaction Status Date / Time Sulfa (Sulfonamide Allergy Mild red and Verified 07/26/23 14:44 Antibiotics) flushed hydrocodone AdvReac Nausea and Verified 07/26/23 14:44 Vomiting oxycodone AdvReac Nausea and Verified 07/26/23 14:44 Vomiting Home Medications Medication Instructions Recorded Confirmed Type latanoprost 0.005 % eye drops 1 drop ophthalmic (eye) HS 04/12/19 07/26/23 History aspirin 81 mg tablet,delayed 81 mg PO DAILY 04/21/19 07/26/23 History release (Aspir-) brimonidine 0.2 %-timolol 0.5 % 1 drp ophthalmic (eye) BID 04/21/19 07/26/23 History eye drops (Combigan) multivitamin 1 tablet PO DAILY 04/21/19 07/26/23 History omega 1-awh-wnj-fish oil 1,200 mg 1 cap PO DAILY 10/30/21 07/26/23 History (144 mg-216 mg) capsule (Fish Oil) dorzolamide 2 % eye drops 1 drp EACH EYE TID 12/17/21 07/26/23 History magnesium 250 mg tablet 250 mg PO DAILY 12/17/21 07/26/23 History potassium chloride 20 mEq 99 meq PO DAILY 03/13/22 07/26/23 History tablet,extended release famotidine 10 mg tablet (Pepcid AC) 10 mg PO DAILY 06/19/22 07/26/23 History cholecalciferol (vitamin D3) 25 25 mcg PO DAILY 03/31/23 07/26/23 History mcg (1,000 unit) tablet glucosamine-chondroitin 250 mg-200 2 tablet PO DAILY 03/31/23 07/26/23 History mg tablet (Osteo Bi-Flex) vitamin B complex 1 cap PO DAILY 03/31/23 07/26/23 History hyoscyamine sulfate 0.125 mg tablet 0.125 mg PO TID PRN upset stomach 05/31/23 07/26/23 Rx #30 tabs mesalamine 800 mg tablet,delayed 800 mg PO DAILY #90 tabs 06/30/23 07/26/23 Rx release pantoprazole 40 mg tablet,delayed 40 mg PO QAM #90 tabs 06/30/23 07/26/23 Rx release rosuvastatin 10 mg tablet (Crestor) 10 mg PO DAILY #90 tabs 06/30/23 07/26/23 Rx lactobacillus combination no.8 3 3 cell PO DAILY 07/23/23 07/26/23 History billion cell capsule Patient hx anesthesia problems: none Family hx anesthesia problems: none Results Review: All pre-operative results and documents have been reviewed as part of the pre-operative evaluation. [facility] Past Medical History Medical History Adenomatous colon polyp Aortic aneurysm Diverticulosis large intestine w/o perforation or abscess w/o bleeding (~03/2013) Family history of colon cancer in father GERD (gastroesophageal reflux disease) Glaucoma High cholesterol History of colonic polyps Thyroid Nodule Surgical History Surgical History History of hernia repair Hx of tonsillectomy Family History Family History Father Malignant neoplasm of prostate Carcinoma of colon Colon polyp Heart disease Mother Cerebrovascular accident Unknown No problems noted. Social History Social History Smoking status: Never smoker Alcohol intake: current Alcohol use details: occasionally Substance use: never Substance use type: does not use Lack of Transportation: No Lack of Food: Never True Current Housing: I Have Housing Concerned About Future Housing: No Difficulty Paying Gas/Electric Bills: No Difficulty Paying for Meds: No Currently Unemployed: No Education: Master's Degree or Higher Difficulty w/ Childcare or Family Care: No Living arrangements: with family Additional living arrangements comments: with sp Occupation/Education: retired Gender identity (if verbalized by the patient): Male Sexual O
[2023-07-29] MEDS: LACTATED RINGERS 1,000 ML 30 ML IV CONT (12:13)
[2023-07-29] MEDS: ceFAZolin 2 GM/D5W 50 ML 2 GM/50 ML BAG IVPB (12:15)
--- NOTE | 2023-07-29 12:35 | W.PM.PROC2 ---
Procedure Note - Detailed Date of Procedure 07/29/23 Pre-op Diagnosis Left ureteral stone Post-op Diagnosis Same Procedure Performed Left ESWL Surgeon Joseph Lees MD Anesthesia General Description of Procedure The patient was brought to the operative suite where he was placed in the supine position on the Dornier lithotripsy table. The focal point of the lithotripter was placed at an 8mm left mid-uretera calculus. A total of 3000 shocks were delivered at a power setting of 5. There appeared to be good fragmentation of the stone. The patient tolerated the procedure well and was taken to the recovery room in good condition. Drains No Packing No Pathology None sent Complications No immediate complications
== END 2023-07-29 14:32 | disposition home or self-care (01) ==
PROVIDERS: PCP Nurse Practitioner Family; Visit Provider Urology
PROC: (CPT 50590; principal; 2023-07-29 14:00)
DX: N20.1 Calculus of ureter (principal); K21.9 Gastro-esophageal reflux disease without esophagitis; E78.00 Pure hypercholesterolemia, unspecified; I71.9 Aortic aneurysm of unspecified site, without rupture; K57.30 Diverticulosis of large intestine without perforation or abscess without bleeding; Z79.51 Long term (current) use of inhaled steroids; Z86.010 Personal history of colon polyps; Z80.0 Family history of malignant neoplasm of digestive organs; Z80.42 Family history of malignant neoplasm of prostate; Z82.49 Family history of ischemic heart disease and other diseases of the circulatory system
CPT/HCPCS: 50590; 36415; 74018; 85610; 85730; 87086; J0690; J3010; J7120

== ENCOUNTER 2023-08-04 14:45 | Outpatient (RCR) | payer MEDICARE, SELFPAY ==
[2023-07-28 00:03] VITALS: BP_SYST 135
[2023-07-28 15:59] VITALS: BP_SYST 135
[2023-08-04 15:01] VITALS: BP_SYST 150
--- NOTE | 2023-08-04 16:05 | PTOPDC ---
Assessment and note entered by Deb Jameson, PT Assessment Status Discharge Diagnosis right rotator cuff repair Onset 04/09/23 Subjective Information Self perceived improvement: 70% improved Last 30% would like to get more strength in it and a little more movement. Pt states can't sleep on his shoulder without it hurting in the shoulder. states used to sleep with hand under pillow and can't. Notices strength deficits above shoulder height the most, and reaching forward. Wakes up with pain, but more moves around the pain reduces. Takes about an hour. Reported Pain Level Pain Score 0: Self Report Assessment PT Clinical Summary Pt has been consistent with his therapy s/p rotator cuff repair 04/09/23. Pt demo's greatly improved active ROM, passive ROM, and strength compared to initial evaluation. Pt does continue to have discomfort and clicking at certain points with motion however reports the clicking is pain- free. His greatest discomfort appears to be in the mornings upon waking but worst rating is only 2/ 10 at most with the greatest portion of his time being spent at 0/10. Pt continues to feel he has less strength in the RUE above shoulder height and has demonstrated poor scapular awareness and control through therapy. Scapular position with activities and HEP was reinforced again this session with patient also being encouraged to contact surgeon's office if he is to have any issues or does not feel he is continuing to progress independently. Pt appears to have reached max therapeutic benefit at this time thus is being discharged from therapy POC. Plan of Care PT Services Indicated No
== END 2023-08-13 13:21 | disposition home or self-care (01) ==
LOC: ANHHIPT 14:45
PROVIDERS: PCP Nurse Practitioner Family; Visit Provider Orthopaedic Surgery
DX: M25.511 Pain in right shoulder (principal); R53.1 Weakness; Z47.89 Encounter for other orthopedic aftercare; Z98.890 Other specified postprocedural states
CPT/HCPCS: 97110; 97530; 97750

== ENCOUNTER 2023-09-09 00:36 | Day surgery (SDC) | payer MEDICARE, SELFPAY ==
--- NOTE | 2023-09-06 12:45 | PC.NURSE ---
Addendum entered by Florence Marcos RN 09/08/23 09:37: TIME CHANGE PER DR MARRUFO' OFFICE. NEW ARRIVAL TIME 9:00AM ON 09/09/23, SURGERY IS AT 11:00AM. INSTR TO STOP DRINKING CLEAR LIQUIDS AT 8:00AM. LEFT MESSAGE ON PATIENT'S CELL PHONE AND SPOKE WITH AT HOME PHONE. SHE RELAYS UNDERSTANDING. Original Note: Report to the Outpatient Waiting Room, entrance under the green pavilion located off [facility], at time __10 AM on date __09/09/23 . Planned Procedure Time: _1200 . Time changes happen often and if your time is changed the preop area will call you the afternoon before. - You and your visitor will be asked to self-screen and do not enter if you have any COVID symptoms. - A mask is optional within the hospital at this time. Patients may have clear liquids (water, carbonated beverages, clear teas, apple juice) until 3 hours prior to surgery ( 9:00AM)with a maximum of 20 ounces. - No food from midnight until time of surgery - Infants may have breast milk until 4 hours before surgery, infant formula 6 hours prior to surgery. - Children will be allowed to drink immediately following surgery. If applicable, please bring a bottle or sippy cup to assist with drinking. Juice, water, soda, and popsicles are readily available. For infants on formula, please bring formula the day of surgery. Pacifiers are allowed. Take the following medications with a SIP of water the morning of surgery: ___EYE DROPS DO NOT STOP ANY OF YOUR OTHER PRESCRIPTION MEDICATIONS PRIOR TO SURGERY ?EXCEPT THE FOLLOWING Medications to discontinue per physician _HOLD ALL VITAMINS AND SUPPLEMENTS 3 DAYS PRE OP .PT STATES LAST DOSE 09/06/23 Please no make-up, nail kazakh, hairspray, perfume, deodorant, or body powder the day of surgery. No jewelry (including any body piercings) or valuables the day of surgery, leave them at home. Please take a shower or bath the night before, or the morning of, surgery with an antibacterial soap. Wear comfortable, loose fitting clothing. Children are encouraged to wear pajamas. - Jewelry must be removed prior to entering the operating room. Rings and piercings that are not removed may be cut off. - The hospital will not accept responsibility for valuables. - Please leave all valuables, including medications, at home the day of surgery. If you are going home after surgery, a licensed driver license reviewing officer must drive you home. - NO public transportation without another adult if you receive anesthesia. - We recommend that an adult stay with you for 24 hours following discharge. - We also recommend that you do not drive, make important decision, drink alcoholic beverages, or take any drugs that were not prescribed by your health care provider for at least 24 hours after your discharge time. For Pediatric surgeries, we recommend two adults accompany the child home. Follow any additional instructions given to you from your surgeon. If you or anyone in your household have experienced Covid symptoms in the past week, please notify your surgeon or the nurse liaison at the phone number below for possible testing. Telephone instructions given to ____PT and asked if any additional questions and then verbalized understanding. Patient advised to call surgeon office or pre surgery nurse liaison [phone] if any additional questions.
[2023-09-06 12:55] VITALS: BMI 24.7
[2023-09-09] VITALS (8 sets, daily range): BP systolic 129–156; BP diastolic 74–96; PULSE 50–64; RESP 12–17; TEMP 36.2; O2SAT 96–99
--- NOTE | ~2023-09-09 | XR_ITS ---
EXAMINATION: XR stent kub - surgery DATE: 09/09/2023 12:29 INDICATION: Left internal ureteral stent placement TECHNIQUE: Fluoroscopic images from a left internal ureteral stent placement are submitted for review . 67 seconds of fluoroscopy time. FINDINGS: There is a left double-J internal ureteral stent projecting in expected position, with proximal Guild loop at the level of the renal pelvis and distal loop in the pelvis within the bladder lumen. IMPRESSION: 1. Left internal ureteral stent placement. Please refer to real-time procedural findings for detail s. Reviewed, dictated and finalized at location B. IMPRESSION: 1. Left internal ureteral stent placement. Please refer to real-time procedur al findings for details.
--- NOTE | 2023-09-09 06:09 | WPDHPUPDATE1 ---
History and Physical Update Update Date/Time: 09/09/23 06:09 History and Physical has been reviewed, including an updated exam of the patient. There are NO changes in the patient's condition. Risks, benefits, and alternatives have been discussed and questions answered. Patient agrees to proceed with procedure.
[2023-09-09] MEDS: LACTATED RINGERS 1,000 ML 30 ML IV CONT (09:45)
--- NOTE | 2023-09-09 09:49 | WPDANESEPPF ---
Anes - Initial Pre Proc Eval Procedure: Operation Date: 09/09/23 11:00 Proposed Procedures p Cystoscopy, Left Ureteroscopy, Possible Left Retrograde Pyelogram, Possible Left Stone Extraction, Possible Left Stent Placement, Possible Holmium Laser Procedure - Joseph Lees MD Date/Time: 09/09/23 09:49 Surgeon: Joseph Lees MD Pre Op Diagnosis: left ureteral stone Patient Data Age: 73 Gender: M Height: 1.78 m Weight: 78.05 kg Allergies Allergy/AdvReac Type Severity Reaction Status Date / Time Sulfa (Sulfonamide Allergy Mild red and Verified 09/09/23 10:02 Antibiotics) flushed hydrocodone AdvReac Nausea and Verified 09/09/23 10:02 Vomiting oxycodone AdvReac Nausea and Verified 09/09/23 10:02 Vomiting Home Medications Medication Instructions Recorded Confirmed Type latanoprost 0.005 % eye drops 1 drop ophthalmic (eye) HS 04/12/19 09/09/23 History brimonidine 0.2 %-timolol 0.5 % 1 drp ophthalmic (eye) BID 04/21/19 09/09/23 History eye drops (Combigan) multivitamin 1 tablet PO DAILY 04/21/19 09/09/23 History omega 8-npc-qor-fish oil 1,200 mg 1 cap PO DAILY 10/30/21 09/09/23 History (144 mg-216 mg) capsule (Fish Oil) dorzolamide 2 % eye drops 1 drp EACH EYE TID 12/17/21 09/09/23 History magnesium 250 mg tablet 250 mg PO DAILY 12/17/21 09/09/23 History potassium chloride 20 mEq 99 meq PO DAILY 03/13/22 09/09/23 History tablet,extended release famotidine 10 mg tablet (Pepcid AC) 10 mg PO PRN PRN Heartburn 06/19/22 09/09/23 History cholecalciferol (vitamin D3) 25 25 mcg PO DAILY 03/31/23 09/09/23 History mcg (1,000 unit) tablet glucosamine-chondroitin 250 mg-200 2 tablet PO DAILY 03/31/23 09/09/23 History mg tablet (Osteo Bi-Flex) vitamin B complex 1 cap PO DAILY 03/31/23 09/09/23 History pantoprazole 40 mg tablet,delayed 40 mg PO QAM #90 tabs 06/30/23 09/09/23 Rx release rosuvastatin 10 mg tablet (Crestor) 10 mg PO DAILY #90 tabs 06/30/23 09/09/23 Rx lactobacillus combination no.8 3 3 cell PO DAILY 07/23/23 09/09/23 History billion cell capsule mesalamine 800 mg tablet,delayed 800 mg PO BID #180 tabs 08/03/23 09/09/23 Rx release Patient hx anesthesia problems: other (Pt reports that he had a very sore throat, area of his mouth sore for several weeks after GA for shoulder sx (ETT), however last GA w LMA without incident. ) Family hx anesthesia problems: none Results Review: All pre-operative results and documents have been reviewed as part of the pre-operative evaluation. [facility] Past Medical History Medical History Adenomatous colon polyp Aortic aneurysm Diverticulosis large intestine w/o perforation or abscess w/o bleeding (~03/2013) Family history of colon cancer in father GERD (gastroesophageal reflux disease) Glaucoma High cholesterol History of colonic polyps Thyroid Nodule Surgical History Surgical History History of hernia repair Hx of tonsillectomy Family History Family History Father Malignant neoplasm of prostate Carcinoma of colon Colon polyp Heart disease Mother Cerebrovascular accident Unknown No problems noted. Social History Social History Smoking status: Never smoker Alcohol intake: current Alcohol use details: occasionally Substance use: never Substance use type: does not use Lack of Transportation: No Lack of Food: Never True Current Housing: I Have Housing Concerned About Future Housing: No Difficulty Paying Gas/Electric Bills: No Difficulty Paying for Meds: No Currently Unemployed: No Education: Master's Degree or Higher Difficulty w/ Childcare or Family Care: No Living arrangements: with family Additional living arrangements comments
--- NOTE | 2023-09-09 11:43 | PM.HPGS ---
History of Present Illness History of Present Illness Consent: Risks, benefits, and alternatives have been discussed and questions answered. Patient agrees to proceed with procedure. Chief complaint: left ureteral stone Narrative: Serafin Patterson is a 73 year old male who is status post ESWL to a 6-7 mm left mid ureteral stone. The stone fragmented minimally and persist, by a couple imaging studies, in the left mid ureter. After discussion of options he has elected for ureteroscopy with laser lithotripsy and stone extraction with possible retrograde pyelogram and stent placement. Review of Systems Review of Systems: All systems reviewed & are unremarkable except as noted in HPI and below PMFSH Past Medical History Medical History Adenomatous colon polyp Aortic aneurysm Diverticulosis large intestine w/o perforation or abscess w/o bleeding (~03/2013) Family history of colon cancer in father GERD (gastroesophageal reflux disease) Glaucoma High cholesterol History of colonic polyps Thyroid Nodule Surgical History Surgical History History of hernia repair Hx of tonsillectomy Family History Family History Father Malignant neoplasm of prostate Carcinoma of colon Colon polyp Heart disease Mother Cerebrovascular accident Unknown No problems noted. Social History Social History Smoking status: Never smoker Alcohol intake: current Alcohol use details: occasionally Substance use: never Substance use type: does not use Lack of Transportation: No Lack of Food: Never True Current Housing: I Have Housing Concerned About Future Housing: No Difficulty Paying Gas/Electric Bills: No Difficulty Paying for Meds: No Currently Unemployed: No Education: Master's Degree or Higher Difficulty w/ Childcare or Family Care: No Living arrangements: with family Additional living arrangements comments: with sp Occupation/Education: retired Gender identity (if verbalized by the patient): Male Sexual Orientation (if Verbalized by the Patient): Straight or Heterosexual Spiritual care concerns: No Meds Home Medications and Allergies Home Medications Medication Instructions Recorded Confirmed Type latanoprost 0.005 % eye drops 1 drop ophthalmic (eye) HS 04/12/19 09/09/23 History brimonidine 0.2 %-timolol 0.5 % 1 drp ophthalmic (eye) BID 04/21/19 09/09/23 History eye drops (Combigan) multivitamin 1 tablet PO DAILY 04/21/19 09/09/23 History omega 1-ahb-cpm-fish oil 1,200 mg 1 cap PO DAILY 10/30/21 09/09/23 History (144 mg-216 mg) capsule (Fish Oil) dorzolamide 2 % eye drops 1 drp EACH EYE TID 12/17/21 09/09/23 History magnesium 250 mg tablet 250 mg PO DAILY 12/17/21 09/09/23 History potassium chloride 20 mEq 99 meq PO DAILY 03/13/22 09/09/23 History tablet,extended release famotidine 10 mg tablet (Pepcid AC) 10 mg PO PRN PRN Heartburn 06/19/22 09/09/23 History cholecalciferol (vitamin D3) 25 25 mcg PO DAILY 03/31/23 09/09/23 History mcg (1,000 unit) tablet glucosamine-chondroitin 250 mg-200 2 tablet PO DAILY 03/31/23 09/09/23 History mg tablet (Osteo Bi-Flex) vitamin B complex 1 cap PO DAILY 03/31/23 09/09/23 History pantoprazole 40 mg tablet,delayed 40 mg PO QAM #90 tabs 06/30/23 09/09/23 Rx release rosuvastatin 10 mg tablet (Crestor) 10 mg PO DAILY #90 tabs 06/30/23 09/09/23 Rx lactobacillus combination no.8 3 3 cell PO DAILY 07/23/23 09/09/23 History billion cell capsule mesalamine 800 mg tablet,delayed 800 mg PO BID #180 tabs 08/03/23 09/09/23 Rx release Allergies Allergy/AdvReac Type Severity Reaction Status Date / Time Sulfa (Sulfonamide Allergy Mild red and Verified 09/09/23 10:02 Antibiotics) flush
[2023-09-09] MEDS: ceFAZolin 2 GM/D5W 50 ML 2 GM/50 ML BAG IVPB (11:49)
--- NOTE | 2023-09-09 12:44 | W.PM.PROC2 ---
Procedure Note - Detailed Date of Procedure 09/09/23 Pre-op Diagnosis Left ureteral stone Post-op Diagnosis Same Procedure Performed Cystoscopy, left ureteroscopy with laser lithotripsy, stone extraction and stent placement Surgeon Joseph Lees MD Anesthesia General Description of Procedure patient is brought to the op suite was prepped draped in routine sterile fashion 1 dorsal lithotomy position after the uneventful induction of a general anesthetic. Nineteen F rigid cystoscope was placed in his bladder. There was no intravesical foreign body or neoplasm. Prostatic urethra was about 2 cm with lateral lobe enlargement and no median lobe. There was no urethral strictures. 0.035 in glidewire was advanced into his single orthotopic left ureteral orifice and advanced to the renal pelvis under fluoroscopy. Distal ureter was dilated with an 8 F 10 F dilator. A safety wire was placed. I attempted to place a 11 F / 13 F ureteral access sheath but his ureter is not of a caliber to easily except that. Performed left ureteroscopy with a 7.5 F flexible ureteral scope. His mid ureteral stone is impacted. Using a 200 micron holmium laser fiber I dusted it and removed couple of the smaller particles with a 1.9 F disposable stone basket. All particles were estimated to be smaller than 3 mm in size. 4.8 F variable length stent was placed with proximal coil in renal pelvis and distal coil in the bladder. Scopes and wires removed he was taken recovery room in good condition Packing No Pathology Yes Complications No immediate complications Condition Stable
== END 2023-09-09 14:20 | disposition home or self-care (01) ==
PROVIDERS: PCP Nurse Practitioner Family; Visit Provider Urology
PROC: (CPT 52352; principal; 2023-09-09 11:00)
DX: N20.1 Calculus of ureter (principal); E78.00 Pure hypercholesterolemia, unspecified; K21.9 Gastro-esophageal reflux disease without esophagitis; H40.9 Unspecified glaucoma
CPT/HCPCS: 52356; 82365; 88300; C1769; C1894; C2617; J0690; J1100; J2405; J2704; J3010; J7120

== ENCOUNTER 2023-11-04 13:21 | Outpatient (CLI) | payer MEDICARE, SELFPAY ==
--- NOTE | ~2023-11-04 | US_ITS ---
EXAMINATION: US thyroid DATE: 11/04/2023 14:16 INDICATION: Nontoxic single thyroid nodule TECHNIQUE: Multiple ultrasound images of the thyroid were obtained. COMPARISON: None. FINDINGS: The right thyroid lobe measures 5.2 x 2.9 x 1.9 cm. The left thyroid lobe measures 4.9 x 3.0 x 1.9 c m. 2.0 cm solid wider than tall hypoechoic TI RADS 4 nodule with ill-defined margins and without ech ogenic foci in the inferior right thyroid lobe which was biopsied on 12/04/2022 with nondiagnostic spe cimen. No change in a a few nodules at the inferior left thyroid lobe the 2 largest each measuring 6 mm which are wider than tall 1 mixed solid and cystic, TI-RADS 3, and the second solid hypoechoic TI RADS 4. There is normal echotexture, echogenicity and vascular flow throughout the thyroid gland. IMPRESSION: 1. A few unchanged thyroid nodules. The largest 2.0 cm TI RADS 4 nodule in the right thyroid needs cr iteria for biopsy and would consider rebiopsy given the prior biopsy with nondiagnostic specimen. Reviewed, dictated and finalized at location A. IMPRESSION: 1. A few unchanged thyroid nodules. The largest 2.0 cm TI RADS 4 nodule in the right thyroid needs criteria for biopsy and would consider rebiopsy given the p rior biopsy with nondiagnostic specimen.
== END 2023-11-04 13:22 | disposition home or self-care (01) ==
PROVIDERS: PCP Nurse Practitioner Family; Visit Provider Internal Medicine Endocrinology, Diabetes & Metabolism
DX: E04.2 Nontoxic multinodular goiter (principal)
CPT/HCPCS: 76536

== ENCOUNTER 2024-04-26 13:19 | Outpatient (CLI) | payer MEDICARE, SELFPAY ==
--- NOTE | ~2024-04-26 | XR_ITS ---
Exam: Abdomen 1V HISTORY: Bilateral Kidney stone COMPARISON: 07/29/2023 TECHNIQUE: Supine images of the abdomen FINDINGS: Bowel gas pattern is non-obstructive. Moderate fecal stasis is identified, including clear visualization of the bilateral renal shadows. Projecting over the left kidney is redemonstration of a 2.5 mm linear calculus projecting at the supe rior endplate of L2, to the left of midline. This calculus is unchanged from 07/29/2023. No renal calculi are identified projecting over the region of the right kidney. No ureteral calculi are noted. IMPRESSION: Limited evaluation secondary to significant fecal stasis demonstrates stable 2.5 mm calculus projecti ng to the left of midline in the expected region of the left kidney. Reviewed, dictated and finalized at location A. RIOR DESIGN PROGRAM CHAIR IMPRESSION: Limited evaluation secondary to significant fecal stasis demonstrates stable 2. 5 mm calculus projecting to the left of midline in the expected region of the l eft kidney.
--- OUTSIDE RECORDS SUMMARY | 2024-04-26 14:25 | XMS_ITS | Encounter Summary ---
Author Organization [facility] Address [address] [place] [address] Care Team Providers Care Flight Test Shop Mechanic Name Role Phone Unavailable Primary Care Provider Unavailsunil e Encounter Details Date Type Department Care Team (Late st Contact Info) Description 10/06/2022 Lab Requisition [facility] - DermPath Lab [address] [place] [id number] Charlene Cole MD [address] [facility] [address] [place] [address] Social History Tobacco Use Types Packs/Day Years Used Date Smoking Tobacco: Never Assessed Sex and Gender Information Value Date Recorded Sex Assigned at Not on file Gender Identity Not on file Sexual Orientation Not on file documented as of this encounter Plan of Treatment Not on file documented as of this encounter Procedures Procedure Name Priority Date/Time Associated Diagnosis Comments DERMATOPATHOLOGY Routine 10/06/2022 3:05 PM CDT documented in this encounter Results * DERMATOPATHOLOGY (10/06/2022 3:05 PM CDT) Case Report Dermatopathology Report Case: [id number] Authorizing Provider: Charlene Cole MD Collected: 10/06/2022 03:05 PM Ordering Location: [facility] Received: 10/08/2022 08:11 AM Pathologist: Nabila White MD Specimen: Skin, right jawline 12:48 PM CDT DERMATOPATHOLOGY LABORATORY Final Diagnosis Specimen A. 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 The 12 to 6 o'clock margin is inked green. The 6 o'clock to 12 o'clock margin is inked black. The 12 o'clock tip is submitted in cassette 1. The 6 o'clock tip is submitted in cassette 2. The remainder of the ellipse is serially sectioned and submitted in cassettes 3-4. Jar 0. 3 12:48 PM CDT DERMATOPATHOLOGY LABORATORY Microscopic Description Specimen A. SKIN, right jawline: The epidermis shows parakeratosis, full thickness disorderly maturation of keratinocytes, mitoses at different levels, and dyskeratotic cells. This lesion is not present at the margin of the specimen. There are fibroblasts and collagen bundles oriented parallel to the skin surface with elongated blood vessels, some of which are oriented perpendicular to the skin surface. 3 12:48 PM CDT DERMATOPATHOLOGY LABORATORY Disclaimer An external and internal positive and negative controls are appropriate for the histochemical, immunohistochemical and immunofluorescence stain(s) in this case (if any), except where stated explicitly. The performance characteristics of the stain(s) cited in this report were developed and its performance characteristic determined by the Dermatopathology Laboratory at [facility], directed by Dr. Era Cavanaugh. These tests need not be, and therefore are not, approved by the [place] Food and Drug Administration. The tests are used for clinical purposes. Billing Codes Specimen Charges Stain Charges 57477 1 3 12:48 PM CDT DERMATOPATHOLOGY LABORATORY Embedded Images 3 12:48 PM CDT DERMATOPATHOLOGY LABORATORY Pathology/Cytolo gy TISSUE SPECIMEN FROM SKIN / Unknown 10/06/2022 3:05 PM CDT 10/08/2022 8:11 AM CDT Charlene Cole MD LAB - PATHOLOGY/CYTO LOGY ORDERABLES DERMATOPATHOLOGY LABORATORY [facility] - Department of Dermatology [facility] [address] [place] [address], [address] [phone] documented in this encounter Visit Diagnoses Not on filedocumented in this encounter
--- OUTSIDE RECORDS SUMMARY | 2024-04-26 14:25 | XMS_ITS | Patient Health Summary ---
Author Organization [facility] Address [address] [place] [address] Care Team Providers Care Seat Nailer Name Role Phone Unavailable Primary Care Provider Unavailabl e Note from [facility],non-owned Affiliates and Associated Physician Practices is amultiple site organization consisting of ambulatory clinics and hospital sitesin [place], [place], [place] and [place]. This disclosure is being madepursuant to the Care Everywhere program and may not contain all information available regarding this patient. Last updated 17.[facility] Social History Tobacco Use Types Packs/Day Years Used Date Smoking Tobacco: Never Assessed Sex and Gender Information Value Date Recorded Sex Assigned at Not on file Gender Identity Not on file Sexual Orientation Not on file Procedures * DERMATOPATHOLOGY(Performed 10/06/2022) * DERMATOPATHOLOGY(Performed 08/27/2022) * DERMATOPATH TECHNICAL REPORT(Performed 05/19/2018) * DERMATOPATH TECHNICAL REPORT(Performed 03/31/2018) Results * DERMATOPATHOLOGY (10/06/2022 3:05 PM CDT) Only the most recent of2 resultswithin the time period is included. Case Report Dermatopathology Report Case: [id number] Authorizing Provider: Charlene Cole MD Collected: 10/06/2022 03:05 PM Ordering Location: [facility] Received: 10/08/2022 08:11 AM Pathologist: Nabila White MD Specimen: Skin, right jawline 3 12:48 PM CDT DERMATOPATHOLOGY LABORATORY Final Diagnosis Specimen A. 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 Era Cavanaugh. These tests need not be, and therefore are not, approved by the [place] Food and Drug Administration. The tests are used for clinical purposes. Billing Codes Specimen Charges Stain Charges 54872 1 3 12:48 PM CDT DERMATOPATHOLOGY LABORATORY Embedded Images 3 12:48 PM CDT DERMATOPATHOLOGY LABORATORY Pathology/Cytolo gy TISSUE SPECIMEN FROM SKIN / Unknown 10/06/2022 3:05 PM CDT 10/08/2022 8:11 AM CDT Charlene Cole MD LAB - PATHOLOGY/CYTO LOGY ORDERABLES DERMATOPATHOLOGY LABORATORY [facility] - Department of Dermatology [address], [address] [phone] * DERMATOPATH TECHNICAL REPORT (05/19/2018 12:00 AM GUN PERFORATOR) Only the most recent of2 resultswithin the time period is included. Case Report Dermatopathology Report Case: [id number] Authorizing Provider: Charlene Cole MD Collected: 05/19/2018 12:00 AM Pathologist: Jessica Collins MD Received: 05/20/2018 11:36 AM Specimen: Skin, left FA 6:42 PM [facility] DERMATOPATHOLOGY LABORATORY Clinical History SCC, biopsy proven. Previous Bx: [id number]. 6:42 PM [facility] DERMATOPATHOLOGY LABORATORY Gross Description Specimen A: Received is one formalin filled container labeled with the patient's name and designated left FA.The specimen consists of an ellipse measuring [id number] and is oriented with the notch at the 3 o'clock position, not labeled on the requisition. The epidermal surface consists of a centrally located 6x5mm previous biopsy site. The 12 to 6 o'clock margin is inked green. The 6 o'clock to 12 o'clock margin is inked black. The 12 o'clock tip is submitted in cassette 1. The 6 o'clock tip is submitted in cassette 2. The remainder of the ellipse is serially sectioned and submitted in cassettes 3-4. Jar 0. [facility] Dermatopathology Laboratory performed the technical component only. 9 6:42 PM [facility] DERMATOPATHOLOGY LABORATORY Embedded Images 6:42 PM [facility] DERMATOPATHOLOGY LABORATORY DISCLAIMER An external and internal positive and negative controls are appropriate for the histochemical, immunohistochemical and immunofluorescence stain(s) in this case (if any), except where stated explicitly. The performance characteristics of the stain(s) cited in this report were developed and its performance characteristic determined by the Dermatopathology Laboratory at [facility], directed by Dr. Era Cavanaugh. These tests need not be, and therefore are not, approved by the [place] Food and Drug Administration. The tests are used for clinical purposes. 9 6:42 PM GUN PERFORATOR DERMATOPATHOLOGY LABORATORY Pathology/Cytolog y TISSUE SPECIMEN FROM SKIN / Unknown 05/19/2018 05/20/2018 11:36 AM GUN PERFORATOR Charlene Cole MD LAB - PATHOLOGY/CYTO LOGY ORDERABLES DERMATOPATHOLOGY LABORATORY [facility] - Department of Dermatology [address] [place] [address], [address] Lab [address] [phone]
--- OUTSIDE RECORDS SUMMARY | 2024-04-26 14:25 | XMS_ITS | Clinical Summary ---
Author Organization [facility] Address [address] [place] [address] Care Team Providers Care Marriage And Family Teacher Name Role Phone Unavailable Primary Care Provider Unavailabl e Source Comments [facility],non-owned Affiliates and Associated Physician Practices is amultiple site organization consisting of ambulatory clinics and hospital sitesin [place], [place], [place] and [place]. This disclosure is being madepursuant to the Care Everywhere program and may not contain all information available regarding this patient. Last updated 17.[facility] Social History Tobacco Use Types Packs/Day Years Used Date Smoking Tobacco: Never Assessed Sex and Gender Information Value Date Recorded Sex Assigned at Not on file Gender Identity Not on file Sexual Orientation Not on file Plan of Treatment Health Maintenance Due Date Last Done Comments COLOGUARD (AGES 45-75) - COL ON CA SCREENING 1950 COLON MONITORING 1949 COLONOSCOPY - COLON CA SCREENING 1949 CT COLONOGRAPHY - COLON CA SCREENING 1950 Colorectal Cancer Screening 1950 FIT - COLON CA SCREENING 1949 FLEX SIG - COLON CA SCREENING 1949 LIPID TESTING 1949 HEPATITIS C SCREENING 08/20/1967 DTAP/TDAP/TD VACCINES (1 - Tdap) 1968 PNEUMOCOCCAL VACCINE 50+ (1 of 1 - PCV) 08/25/1999 ZOSTER VACCINE (1 of 2) 08/25/1999 COVID-19 VACCINE ( - 2023-2 5 season) 2023 INFLUENZA VACCINE (#1) 2023 DEPRESSION SCREENING 03/22/2024 MEDICARE AWV CALENDAR YEAR 2024 Respiratory Syncytial Virus (RSV) Vaccine Pt: or over 60 yrs (1 - 1-dose 75+ series) 2024 HEPATITIS B VACCINE Aged Out No longe r eligible based on patient's age to complete this topic HIB VACCINE Aged Out No longer eligi ble based on patient's age to complete this topic HPV VACCINE Aged Out No longer eligi ble based on patient's age to complete this topic MENINGOCOCCAL (Group B) VACCINE Aged Out No longer eligible based on patient's age to complete this topic MENINGOCOCCAL VACCINE Aged Out No deion hasmukh eligible based on patient's age to complete this topic SKY TIM Personal/Family [address] [place] [phone] SKY TIM Personal/Family [address] [place] [phone] SKY TIM Personal/Family [address] [place] [phone]
--- OUTSIDE RECORDS SUMMARY | 2024-04-26 14:25 | XMS_ITS | Encounter Summary ---
Author Organization [facility] Address [address] [facility] [place] [address] Care Team Providers Care Street Supervisor Name Role Phone Unavailable Primary Care Provider Unavailsunil e Encounter Details Date Type Department Care Team (Late st Contact Info) Description 08/27/2022 Lab Requisition [facility] - DermPath Lab [address] [facility], [place] [phone] Charlene Cole MD [address] [facility] 3 [place] [address] Social History Tobacco Use Types Packs/Day Years Used Date Smoking Tobacco: Never Assessed Sex and Gender Information Value Date Recorded Sex Assigned at Not on file Gender Identity Not on file Sexual Orientation Not on file documented as of this encounter Plan of Treatment Not on file documented as of this encounter Procedures Procedure Name Priority Date/Time Associated Diagnosis Comments DERMATOPATHOLOGY Routine 08/27/2022 11:1 7 AM CDT documented in this encounter Results * DERMATOPATHOLOGY (08/27/2022 11:17 AM CDT) Case Report Dermatopathology Report Case: [id number] Authorizing Provider: Charlene Cole MD Collected: 08/27/2022 11:17 AM Ordering Location: [facility] DermPath Lab Received: 08/28/2022 01:17 PM Pathologist: Nabila White MD Specimen: Skin, right jawline 12:30 PM CDT DERMATOPATHOLOGY LABORATORY Final Diagnosis Specimen A. 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 The specimen consists of a shave biopsy measuring 9x6x1 mm. Jar 0. 3 12:30 PM CDT DERMATOPATHOLOGY LABORATORY Microscopic Description Specimen A. SKIN, right jawline: The epidermis shows parakeratosis, full thickness disorderly maturation of keratinocytes, mitoses at different levels, and dyskeratotic cells. 3 12:30 PM CDT DERMATOPATHOLOGY LABORATORY Disclaimer An external and internal positive and negative controls are appropriate for the histochemical, immunohistochemical and immunofluorescence stain(s) in this case (if any), except where stated explicitly. The performance characteristics of the stain(s) cited in this report were developed and its performance characteristic determined by the Dermatopathology Laboratory at [facility], directed by Dr. Era Cavanaugh. These tests need not be, and therefore are not, approved by the [place] Food and Drug Administration. The tests are used for clinical purposes. Billing Codes Specimen Charges Stain Charges 68495 1 3 12:30 PM CDT DERMATOPATHOLOGY LABORATORY Embedded Images 3 12:30 PM CDT DERMATOPATHOLOGY LABORATORY Pathology/Cytolo gy TISSUE SPECIMEN FROM SKIN / Unknown 08/27/2022 11:17 AM CDT 08/28/2022 1:17 PM CDT Charlene Cole MD LAB - PATHOLOGY/CYTO LOGY ORDERABLES DERMATOPATHOLOGY LABORATORY [facility] - Department of Dermatology [facility] [address] [place] [address], [address] [phone] documented in this encounter Visit Diagnoses Not on filedocumented in this encounter
--- OUTSIDE RECORDS SUMMARY | 2024-04-26 14:25 | XMS_ITS | Referral Summary ---
Author Organization [facility] Address [address] [facility] [place] [address] Care Team Providers Care Business Development Professional Name Role Phone Unavailable Primary Care Provider Unavailabl e Source Comments [facility],non-owned Affiliates and Associated Physician Practices is amultiple site organization consisting of ambulatory clinics and hospital sitesin [place], [place], [place] and [place]. This disclosure is being madepursuant to the Care Everywhere program and may not contain all information available regarding this patient. Last updated 17.[facility] Social History Tobacco Use Types Packs/Day Years Used Date Smoking Tobacco: Never Assessed Sex and Gender Information Value Date Recorded Sex Assigned at Not on file Gender Identity Not on file Sexual Orientation Not on file Plan of Treatment Not on file SKY TIM Personal/Family [address] [place] [phone] SKY TIM Personal/Family [address] [place] [phone] SKY TIM Personal/Family [address] [place] [phone]
--- OUTSIDE RECORDS SUMMARY | 2024-04-26 14:25 | XMS_ITS | Encounter Summary ---
Author Organization [facility] Address [address] [place] [address] Care Team Providers Care Counter Attendant Name Role Phone Armani Lopez MD Primary Care Provider [phone] Keya Tanner Primary Care Provider [phone] Encounter Details Date Type Department Care Team (Late st Contact Info) Description 09/12/2021 [facility] [address] [place] [address] Jakob Amezcua MA Social History Tobacco Use Types Packs/Day Years Used Date Smoking Tobacco: Never Smokeless Tobacco: Never Alcohol Use Standard Drinks/Week Comments Yes 0 (1 standard drink = 0.6 oz pur e alcohol) rare Sex and Gender Information Value Date Recorded Sex Assigned at Not on file Legal Sex Male 8:17 PM CDT Gender Identity Male 07/10/2021 6:00 AM CDT Sexual Orientation Straight 07/10/2021 6 :00 AM CDT COVID-19 Exposure Response Date Recorded In the last 10 days, have yo u been in contact with someone who was confirmed or suspected to have Coronavirus/COVID-19? No / Unsure 09/12/2021 2:20 PM CDT documented as of this encounter Plan of Treatment Upcoming Encounters Date Type Department Care Team (Late st Contact Info) Description 09/05/2024 11:00 AM CDT Appointment [facility] [address] [place], [place] [id number] Martell Tyson MD [facility]. [address] [place] [address] 09/18/2024 10:15 AM CDT Office Visit [facility] [address] [place] [phone] Martell Tyson MD [address] [place] [address] documented as of this encounter Procedures Procedure Name Priority Date/Time Associated Diagnosis Comments COMPREHENSIVE METABOLIC PANEL Routine 01/19/2023 LIPID PANEL Routine 01/19/2023 CBC, MANUAL DIFF Routine 01/19/2023 THYROID STIM HORMONE TSH Routine 01/19/2023 FOLATE (OUTSIDE LAB) Routine 04/01/2021 VITAMIN B-12 Routine 04/01/2021 HEMOGLOBIN, GLYCOSYLATED Routine 04/01/2021 THYROID STIM HORMONE TSH Routine 04/01/2021 VITAMIN D, 25 OH Routine 04/01/2021 CBC (OUTSIDE LAB) Routine 01/16/2021 COMPREHENSIVE METABOLIC PANEL Routine 01/16/2021 LIPID PANEL Routine 01/16/2021 THYROID STIM HORMONE TSH Routine 01/16/2021 documented in this encounter Results * COMPREHENSIVE METABOLIC PANEL (01/19/2023) SODIUM S/P/B 141 GLUCOSE 97 mg/dL AST 23 BUN 19 CREATININE S/P/B 0.87 0.7 - 1.3 CALCIUM S/P/B 9.1 POTASSIUM S/P/B 4.0 CHLORIDE S/P/B 106 ALT 23 GFR ESTIMATE 91 Default History Genericprovider LABORATORY Final Result * LIPID PANEL (01/19/2023) Pathologist [facility] CHOLESTEROL 155 TRIGLYCERIDES 230 HDL 44 LDL (CALCULATED) 79 NON HDL CHOLESTEROL 111 Default History Genericprovider LABORATORY Final Result * CBC, MANUAL DIFF (01/19/2023) Pathologist [facility] WBC 5.2 HGB 15.7 HCT 45.7 PLT 234 Default History Genericprovider LABORATORY Final Result * THYROID STIM HORMONE TSH (01/19/2023) Pathologist [facility] TSH 1.56 Default History Genericprovider LABORATORY Final Result * VITAMIN D, 25 OH (04/01/2021) Pathologist [facility] VITAMIN D 25 HYDROXY S/P/B 40 04/01/2021 us Doc [facility] Abstract LABORATORY Final Result * FOLATE (OUTSIDE LAB) (04/01/2021) Pathologist [facility] FOLATE >24 04/01/2021 us Doc [facility] Abstract LAB-OUTSIDE/ABSTRACTED Final Result * VITAMIN B-12 (04/01/2021) Pathologist [facility] VITAMIN B12 S/P/B 497 04/01/2021 us Doc [facility] Abstract LABORATORY Final Result * THYROID STIM HORMONE, TSH (04/01/2021) Pathologist [facility] TSH 0.82 04/01/2021 us Doc [facility] Abstract LABORATORY Final Result * HEMOGLOBIN, GLYCOSYLATED (04/01/2021) Pathologist [facility] HGB A1C 5.9 % 04/01/2021 us Doc [facility] Abstract LABORATORY Final Result * CBC (OUTSIDE LAB) (01/16/2021) Pathologist [facility] WBC 5.4 HGB 15.3 HCT 46.3 PLT 234 01/16/2021 us Doc [facility] Abstract LAB-OUTSIDE/ABSTRACTED Final Result * THYROID STIM HORMONE, TSH (01/16/2021) Pathologist [facility] TSH 1.66 01/16/2021 us Doc [facility] Abstract LABORATORY Final Result * LIPID PANEL (01/16/2021) Pathologist [facility] CHOLESTEROL 159 HDL 53 TRIGLYCERIDES 142 NON HDL CHOLESTEROL 106 LDL (CALCULATED) 82 01/16/2021 us Doc [facility] Abstract LABORATORY Final Result * COMPREHENSIVE METABOLIC PANEL (01/16/2021) Pathologist [facility] SODIUM S/P/B 140 POTASSIUM S/P/B 4.2 CO2 29 CHLORIDE S/P/B 103 GLUCOSE 95 mg/dL CALCIUM S/P/B 9.8 BUN 19 CREATININE S/P/B 1.0 0.7 - 1.3 EGFR AFR. AMER. 87 <=90 EGFR NON-AFR. AMER. 75 <=90 ALKALINE PHOSPHATASE S/P/B 58 ALT 34 AST 28 BILIRUBIN TOTAL S/P/B 0.6 ALBUMIN S/P/B 4.5 3.5 - 5.0 TOTAL PROTEIN S/P/B 7.2 01/16/2021 us Doc [facility] Abstract LABORATORY Final Result documented in this encounter Visit Diagnoses Not on filedocumented in this encounter Care Teams Counter Attendant Relationship Specialty Start Date End Date Lopez, Armani L, MD On license of [facility] [place] [address] PCP - General INTERNAL MEDICINE 09/13/19 08/24/22 Keya Tanner FNP On license of [facility] [place] [address] PCP - General Nurse Practitioner Family 08/25/22 documented as of this encounter
--- OUTSIDE RECORDS SUMMARY | 2024-04-26 14:25 | XMS_ITS | Clinical Summary ---
Author Organization [facility] Address [address] [place] [address] Care Team Providers Care Security Professionals Name Role Phone Ciro Keya HURST Primary Care Provider [phone] Allergies Active Allergy Reactions Criticality Noted Date Comments Difluprednate Other (see comment) Low 12/20/2017 Increased IOP Sulfa Antibiotics Other (see comment),Rash Medium 03/2017 Medications mesalamine EC 800 MG tablet Take 1 tablet (800 mg total) by mouth daily. 07/21/2021 Active rosuvastatin 10 MG tablet Take 1 tablet (10 mg total) by mouth every evening. 07/07/2021 Active COMBIGAN 0.2-0.5 % ophthalmic solution Place 1 drop into both eyes every 12 (twelve) hours. 08/25/2021 Active latanoprost 0.005 % ophthalmic solution Place 1 drop into both eyes nightly at bedtime. Active multi vitamin/mineral s tablet Take 1 tablet by mouth daily. Active aspirin EC 81 MG tablet Take 1 tablet (81 mg total) by mouth daily. Active B complex-C Cap capsule Take 1 capsule by mouth daily. Active magnesium oxide 250 MG tablet Take 1 tablet (250 mg total) by mouth daily. Active Potassium 99 MG tablet Take 1 tablet by mouth daily. Active [place]-3 Fatty Acids (FISH OIL) 1200 MG Cap Take by mouth daily. Active famotidine (PEPCID) 10 MG tablet Take 1 tablet (10 mg total) by mouth 2 (two) times daily as needed. Active ketorolac (ACULAR) 0.5 % ophthalmic solution 08/14/2022 Active pantoprazole EC (PROTONIX) 40 MG tablet Take 1 tablet (40 mg total) by mouth every morning. 06/30/2023 Active Netarsudil Dimesylate (RHOPRESSA) 0.02 % Solution Apply 1 drop to eye every evening. Active metoprolol succinate ER (TOPROL-XL) 25 MG 24 hr tablet Take 1 tablet (25 mg total) by mouth every evening. 90 tablet 3 09/16/2023 Active Active Problems Problem Noted Date Diagnosed Date Primary open angle glaucoma (POAG) of left eye, moderate stage 06/23/2022 Immunizations Name Administration Dates Next Due Influenza Adult (Generic) 01/19/2022 MODERNA COVID-19 (12+) MRNA, LNP-S, PF, 100 MCG/ 0.5 ML DOSE 01/13/2021,06/12/2020,05/15/2020 MODERNA COVID-19 (MARINE DIESEL TECHNICIAN JAKE DONY), MRNA, LNP-S, PF, 50 MCG/ 0.25 ML DOSE 07/07/2021 Tdap (Adacel) 09/01/2022 Family History Medical History Relation Comments Open Heart Father Stroke Mother Stroke Paternal Grandfather Relation Status Comments Father Mother Paternal Grandfather Social History Tobacco Use Types Packs/Day Years Used Date Smoking Tobacco: Never Smokeless Tobacco: Never Tobacco Cessation:Counseling Given: Not Answered Alcohol Use Standard Drinks/Week Comments Yes 0 (1 standard drink = 0.6 oz pur e alcohol) rare Sex and Gender Information Value Date Recorded Sex Assigned at Not on file Legal Sex Male 8:17 PM CDT Gender Identity Male 07/10/2021 6:00 AM CDT Sexual Orientation Straight 07/10/2021 6: 00 AM CDT Last Filed Vital Signs Vital Sign Reading Time Taken Comments Blood Pressure 110/74 09/16/2023 10:24 AM CDT Pulse 77 09/16/2023 10:24 AM CDT Temperature 36.3 C (97.3 F) 09/24/2022 1:20 PM CDT Respiratory Rate 14 09/24/2022 4:00 PM CDT Oxygen Saturation 100% 09/24/2022 4:00 PM CDT Inhaled Oxygen Concentration - - Weight 78.9 kg (174 lb) 09/16/2023 10:24 AM CDT Height 177.8 cm (5' 10 ) 09/16/2023 10:24 AM CDT Body Mass Index 24.97 09/16/2023 10:24 AM CDT Plan of Treatment Upcoming Encounters Date Type Department Care Team (Late st Contact Info) Description 09/05/2024 11:[address] [place] [address] [place] [address] Martell Tyson MD [address] [facility]. [address] [place], [place] [phone] 09/18/2024 10:15 AM CDT Office Visit [facility] [address] [place] [phone] Martell Tyson MD [address] [facility] [place], [place] [id number] Health Maintenance Due Date Last Done Comments Colorectal Cancer Screening Colonoscopy (10 Years) 1950 PHQ-2 (Physician Odonnell) 1961 Hepatitis C 08/25/1967 Zoster Vaccines (1 of 2) 08/25/1999 Annual Medicare Wellness Visit 2014 Pneumococcal Vaccine: 65+ Years (1 of 1 - PCV) 2014 COVID-19 Vaccine ( season) 2023 03/24/2022, 07/07/2021, 01/13/2021, Additional history exists Influenza Adult (#1) 2023 01/19/2022 PHQ-2 (Physician Odonnell) 03/22/2024 RSV Immunization or 60+ Years (1 - 1-dose 75+ series) 2024 DTaP, Tdap and Td Vaccines (2 - Td or Tdap) 09/01/2032 09/01/2022 Meningococcal B Vaccine Aged Out No l onger eligible based on patient's age to complete this topic Meningococcal Vaccine Aged Out No deion hasmukh eligible based on patient's age to complete this topic RSV Immunizations Under 20 Months Aged Out No longer eligible based on patient's age to complete this topic Insurance AET[employer] Care Teams Security Professionals Relationship Specialty Start Date End Date Keya Tanner FNP [address] [phone] PCP - General Nurse Practitioner Family 08/25/22
--- OUTSIDE RECORDS SUMMARY | 2024-04-26 14:25 | XMS_ITS | Encounter Summary ---
Author Organization [facility] Address [address] [facility] [address] Care Team Providers Care Bag Bundler Name Role Phone Unavailable Primary Care Provider Unavailabl e Encounter Details Date Type Department Care Team (Late st Contact Info) Description 04/01/2018 Lab Requisition [facility] Care DermPath Lab [address] [facility] [address] Charlene Cole MD [address] [facility] 3 [place] [address] Social History Tobacco Use Types Packs/Day Years Used Date Smoking Tobacco: Never Assessed Sex and Gender Information Value Date Recorded Sex Assigned at Not on file Gender Identity Not on file Sexual Orientation Not on file documented as of this encounter Plan of Treatment Not on file documented as of this encounter Procedures Procedure Name Priority Date/Time Associated Diagnosis Comments DERMATOPATH TECHNICAL REPORT Routine 03/31/2018 12:00 AM ANALYTICS SPECIALIST documented in this encounter Results * DERMATOPATH TECHNICAL REPORT (03/31/2018 12:00 AM ANALYTICS SPECIALIST) Case Report Dermatopathology Report Case: [id number] Authorizing Provider: Charlene Cloe MD Collected: 03/31/2018 12:00 AM Pathologist: Jessica Collins MD Received: 04/01/2018 07:14 AM Specimen: Skin, left forearm 9 11:25 AM ANALYTICS SPECIALIST DERMATOPATHOLOGY LABORATORY Clinical History R/O BCC. [place] scaly papule. 9 11:25 AM ANALYTICS SPECIALIST DERMATOPATHOLOGY LABORATORY Gross Description Specimen A: Received is one formalin filled container labeled with the patient's name and designated left forearm. The specimen consists of a shave measuring [id number]. Jar 0. [facility] Dermatopathology Laboratory performed the technical component only. 9 11:[address] [facility] DERMATOPATHOLOGY LABORATORY Embedded Images 11:[address] [facility] DERMATOPATHOLOGY LABORATORY DISCLAIMER An external and internal positive and negative controls are appropriate for the histochemical, immunohistochemical and immunofluorescence stain(s) in this case (if any), except where stated explicitly. The performance characteristics of the stain(s) cited in this report were developed and its performance characteristic determined by the Dermatopathology Laboratory at [facility], directed by Dr. Era Cavanaugh. These tests need not be, and therefore are not, approved by the [place] Food and Drug Administration. The tests are used for clinical purposes. 9 11:[address] [facility] DERMATOPATHOLOGY LABORATORY Pathology/Cytolog y TISSUE SPECIMEN FROM SKIN / Unknown 03/31/2018 04/01/2018 7:14 AM ANALYTICS SPECIALIST Charlene Cole MD LAB - PATHOLOGY/CYTO LOGY ORDERABLES DERMATOPATHOLOGY LABORATORY [facility] - Department of Dermatology [address] [place] [address], 5th [place] [address], [place] [phone] documented in this encounter Visit Diagnoses Not on filedocumented in this encounter
--- OUTSIDE RECORDS SUMMARY | 2024-04-26 14:25 | XMS_ITS | Encounter Summary ---
Author Organization [facility] Address [address] [place] [place] [address] Care Team Providers Care Rock Splitter Name Role Phone Unavailable Primary Care Provider Unavailsunil e Encounter Details Date Type Department Care Team (Late st Contact Info) Description 05/20/2018 Lab Requisition [facility] Care DermPath Lab [address] [facility], [place] [address] Charlene Cole MD [address] [facility] 3 [place] [address] Social History Tobacco Use Types Packs/Day Years [...] Associated Diagnosis Comments DERMATOPATH TECHNICAL REPORT Routine 05/19/2018 12:00 AM DOUGH PUNCHER documented in this encounter Results * DERMATOPATH TECHNICAL REPORT (05/19/2018 12:00 AM DOUGH PUNCHER) Case Report Dermatopathology Report Case: [id number] Authorizing Provider: Charlene Cole MD Collected: 05/19/2018 12:00 AM Pathologist: Jessica Collins MD Received: 05/20/2018 11:36 AM Specimen: Skin, left FA 9 6:42 PM [facility] DERMATOPATHOLOGY LABORATORY Clinical History SCC, biopsy proven. Previous Bx: [id number]. 9 6:42 PM DOUGH PUNCHER DERMATOPATHOLOGY LABORATORY Gross Description Specimen A: Received is one formalin filled container labeled with the patient's name and designated left FA.The specimen consists of an ellipse measuring [id number] and is oriented with the notch at [...] and submitted in cassettes 3-4. Jar 0. [facility] Dermatopathology Laboratory performed the technical component only. 9 6:42 PM [facility] DERMATOPATHOLOGY LABORATORY Embedded Images 9 6:42 PM [facility] DERMATOPATHOLOGY LABORATORY DISCLAIMER An external and internal positive and negative controls are appropriate for the histochemical, immunohistochemical and immunofluorescence stain(s) in this case (if any), except where stated explicitly. The performance characteristics of the stain(s) cited in this report were developed and its performance characteristic determined by the Dermatopathology Laboratory at [facility], directed by Dr. Era Cavanaugh. These tests need not be, and therefore are not, approved by the [place] Food and Drug Administration. The tests are used for clinical purposes. 9 6:42 PM [facility] DERMATOPATHOLOGY LABORATORY Pathology/Cytolog y TISSUE SPECIMEN FROM SKIN / Unknown 05/19/2018 05/20/2018 11:36 AM DOUGH PUNCHER Charlene Cole MD LAB - PATHOLOGY/CYTO LOGY ORDERABLES DERMATOPATHOLOGY LABORATORY [facility] - Department of Dermatology [address] [place] [address], 5th [place] [address], [facility] [phone] documented in this encounter Visit Diagnoses Not on filedocumented in this encounter
--- OUTSIDE RECORDS SUMMARY | 2024-04-26 14:26 | XMS_ITS | Referral Summary ---
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); Meibomian gland dysfunction (MGD) of upper and lower lids of both eyes; Primary open angle glaucoma (POAG) of left eye, moderate stage 03/08/2024 Telephone [facility] [address] [place] [address] Rinku Davis MD Return Call/Reschedule Request from Last 3 Months Allergies Active Allergy Reactions Criticality Noted Date Comments Difluprednate Other (See comments) Low 12/20/2017 Increased IOP Sulfa (Sulfonamide Antibiotics) Rash,Flushing (skin) Medium 12/20/2017 Medications APRISO 0.375 gram 24 hr capsuleIndicati ons:Ulcerative Colitis Pt is taking generic (mesalamine instead of name brand) [address] (PROTONIX) 40 mg EC tablet 8 Active rosuvastatin (CRESTOR) 10 mg tablet 8 Active aspirin 81 mg enteric coated tablet Take 1 tablet (81 mg total) by mouth daily Active fish oil-dha-epa 1,200-144-216 mg capsule Take 1 tablet/capsule by mouth daily Active jiikyimd-krg-ZZ -lycopen-lutein 0.4-300-250 mg-mcg-mcg tabletIndicatio ns:Vitamin Deficiency Prevention Take 1 tablet by mouth daily Active magnesium oxide (MAG-OX) 250 mg (150.8 mg elemental) tablet Take 1 tablet (250 mg total) by mouth daily Active potassium gluconate 595 mg (99 mg) tablet Take 1 tablet (595 mg total) by mouth daily Active famotidine (PEPCID) 10 mg tablet Take 1 tablet (10 mg total) by mouth 2 (two) times a day Active hyoscyamine (LEVSIN) 0.125 mg SL tablet 4 Active metoprolol XL (TOPROL-XL) 25 mg extended release tablet Take 1 tablet (25 mg total) by mouth nightly 4 Active tamsulosin (FLOMAX) 0.4 mg extended release capsule Take by mouth daily 4 Active netarsudiL 0.02 % drops Administer 0.05 mL (1 drop total) into both eyes nightly 7.5 mL 3 4 Active latanoprost (XALATAN) 0.005 % ophthalmic solution Administer 1 drop into both eyes nightly 7.5 mL 3 4 Active dorzolamide (TRUSOPT) 2 % ophthalmic solution Administer 1 drop into both eyes 3 (three) times a day 30 mL 3 4 Active brimonidine-mercy oloL (COMBIGAN) 0.2-0.5 % ophthalmic solution Administer 1 drop into both eyes 2 (two) times a day 30 mL 3 4 Active Active Problems Problem Noted Date Diagnosed Date Punctate epithelial keratopathy of both eyes Assessment & Plan (03/10/2024 8:49 AM INVESTMENT MANAGER): PEE OS>>OD since coming back from vacation on airplane. Has not noticeably improved with Ats nightly. Recommend hot compresses bid OU and AT ointment qhs OU as well as PFATs prn during the day, at least 5 minutes after glaucoma eye drops. Call if no improvement in the next few weeks. 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 Primary open angle glaucoma (POAG) of left eye, moderate stage 06/23/2022 Assessment & Plan (03/10/2024 8:50 AM INVESTMENT MANAGER): Follows with Dr. Davis. CPM Epiretinal membrane (ERM) of right eye 8 Social History Tobacco Use Types Packs/Day Years Used Date Smoking Tobacco: Never Smokeless Tobacco: Never Sex and Gender Information Value Date Recorded Sex Assigned at Not on file Legal Sex Male 11:18 AM CDT Gender Identity Male 10/01/2022 4:30 PM CDT Sexual Orientation Straight 10/01/2022 4: 30 PM CDT Plan of Treatment Not on file Insurance AET MEDICARE Care Teams Vp Production Relationship Specialty Start Date End Date Michael Guo MD [address] [place] [id number] PCP - General Family Medicine 06/23/22
--- OUTSIDE RECORDS SUMMARY | 2024-04-26 14:26 | XMS_ITS | Clinical Summary ---
Author Organization [facility] Address [address] [place] [phone] Care Team Providers Care Information Systems Coordinator Name Role Phone Michael Guo MD Primary Care Provider [phone] [phone] Allergies Active Allergy Reactions Criticality Noted Date [...] Take 1 tablet/capsule by mouth daily Active sjloyyhd-nca-BC -lycopen-lutein 0.4-300-250 mg-mcg-mcg tabletIndicatio ns:Vitamin Deficiency Prevention [...] eyes Assessment & Plan (03/10/2024 8:49 AM FERRYBOAT DECKHAND): PEE OS>>OD since coming back from vacation [...] 03/10/2024 Assessment & Plan (03/10/2024 8:50 AM FERRYBOAT DECKHAND): Recommend hot compresses. Primary open angle glaucoma (POAG) of left eye, moderate stage 06/23/2022 Assessment & Plan (03/10/2024 8:50 AM FERRYBOAT DECKHAND): Follows with Dr. Davis. 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); Meibomian gland dysfunction (MGD) of upper and lower lids of both eyes; Primary open angle glaucoma (POAG) of left eye, moderate stage 03/08/2024 Telephone [facility] [address] [place] [address] Rinku Davis MD Return Call/Reschedule Request from Last 3 Months Surgical History Surgery Date Site/Laterality Comments CATARACT EXTRACTION Medical History Medical History Date Comments Cataract Glaucoma Retinal tear right eye Epiretinal membrane (ERM) of right eye Family History Medical History Relation Name Comments Cataracts Father Diabetes Father Glaucoma Father Macular degeneration Father Cataracts Mother Retinal detachment Neg Hx Thyroid disease Neg Hx Relation Name Status Comments Father Mother Social History Tobacco Use Types Packs/Day Years Used Date Smoking Tobacco: Never Smokeless Tobacco: Never Sex and Gender Information Value Date Recorded Sex Assigned at Not on file Legal Sex Male 11:18 AM CDT Gender Identity Male 10/01/2022 4:30 PM CDT Sexual Orientation Straight 10/01/2022 4: 30 PM CDT Obstetrics History Plan of Treatment Health Maintenance Due Date Last Done Comments Colon Cancer Screening-Colonoscopy 1950 Depression Screening 1950 Fall Risk Assessment 1950 Hepatitis C Screening 1950 Hepatitis B Screening 08/25/1967 Zoster Vaccine (1 of 2) 08/25/1999 Pneumococcal vaccine 65+ (1 of 1 - PCV) 2014 Well Visit 65+ 2014 Covid-19 Vaccine (6 - 2023-2 5 season) 2023 03/24/2022, 07/07/2021, 01/13/2021, Additional history exists Influenza Vaccine (#1) 2023 01/19/2022 DTaP/Tdap/Td Vaccine (2 - Td or Tdap) 09/01/2032 09/01/2022 Insurance [employer] MEDICARE Care Teams Information Systems Coordinator Relationship Specialty Start Date End Date Michael Guo MD [address] [place] [id number] PCP - General Family Medicine 06/23/22
--- OUTSIDE RECORDS SUMMARY | 2024-04-26 14:26 | XMS_ITS | Encounter Summary ---
Author Organization [facility] Address [address] [place] [address] Care Team Providers Care Splitter Machine Name Role Phone Keya Tanner ARIS Primary Care Provider [phone] [phone] Encounter Details Date Type Department Care Team (Late st Contact Info) Description 09/01/2022 [employer] Message [facility] [address] [place] [phone] Jeana Magallon, SIDNEY [address] [place] [phone] follow up Social History Tobacco Use Types Packs/Day Years [...] Orientation Straight 07/10/2021 6: 00 AM CDT COVID-19 Exposure Response Date Recorded In the last 10 days, have yo u been in contact with someone who was confirmed or suspected to have Coronavirus/COVID-19? No / Unsure 09/01/2022 1:58 PM CDT documented as of this encounter Plan of Treatment Upcoming Encounters Date Type Department Care Team (Late st Contact Info) Description 09/05/2024 11:00 AM CDT Appointment [facility] [address] [place] [address] Martell Tyson MD [facility]. [address] [place] [address] 09/18/2024 10:15 AM CDT Office Visit [facility] [address] [place] [address] Martell Tyson MD [facility]. [address] [place] [address] documented as of this encounter Visit Diagnoses Not on filedocumented in this encounter Care Teams Splitter Machine Relationship Specialty Start Date End Date Keya Tanner FNP [facility] [place] [address] PCP - General Nurse Practitioner Family 08/25/22 documented as of this encounter
== END 2024-04-26 13:20 | disposition home or self-care (01) ==
PROVIDERS: PCP Nurse Practitioner Family; Visit Provider Urology
DX: N20.0 Calculus of kidney (principal)
CPT/HCPCS: 74018

== ENCOUNTER 2024-11-08 13:22 | Outpatient (CLI) | payer MEDICARE, SELFPAY ==
--- NOTE | ~2024-11-08 | US_ITS ---
US thyroid INDICATION: Nontoxic thyroid nodule TECHNIQUE: Real-time sonographic images of the thyroid gland were obtained. COMPARISON: Comparison to multiple prior studies sequentially, with oldest reviewed study dated 12/04/2022. FINDINGS: The right thyroid lobe measures 4.4 x 1.7 x 2 cm. The left thyroid lobe measures 4.5 x 2 x 1.6 cm. There is normal echotexture and echogenicity throughout the thyroid gland. In the left lobe there is a solid hypoechoic 11 mm mass which is wider than tall, decreased in size compared with prior studies, presumably benign,. The margins are ill-defined with no echogenic foci. Normal vascular flow is present. IMPRESSION: 1. Decreasing size of 11 mm left thyroid nodule, TR 4. There are no masses which meet sonographic criteria for biopsy. Reviewed, dictated and finalized at location A. IMPRESSION: 1. Decreasing size of 11 mm left thyroid nodule, TR 4. There are no masses whi ch meet sonographic criteria for biopsy.
== END 2024-11-08 13:23 | disposition home or self-care (01) ==
LOC: MICIMG 13:22
PROVIDERS: PCP Nurse Practitioner Family; Visit Provider Internal Medicine Endocrinology, Diabetes & Metabolism
DX: E04.1 Nontoxic single thyroid nodule (principal)
CPT/HCPCS: 76536